=== PATIENT | female | born 2000 | race Caucasian/White ===

== ENCOUNTER 2020-01-05 20:37 | Emergency (ER) | payer OTHER, SELFPAY ==
[2020-01-05 20:38] VITALS: BP 148/101; PULSE 94; RESP 18; TEMP 36.5; O2SAT 99
--- NOTE | 2020-01-05 21:14 | ED.WOUNDLAC ---
HPI - Wound/Laceration General Chief Complaint: Wound/Laceration Stated Complaint: cut fingers open Time Seen by Provider: 01/05/20 20:45 History of Present Illness HPI narrative: Patient is a 19-year-old female who presents ER with laceration to the fingertips of the left hand digits 2 through 4. Palmar aspect. Bleeding controlled. Tetanus up-to-date. No numbness or tingling. Got her fingers caught on a hedge tremor. Range of motion intact. Related Data Allergies Allergy/AdvReac Type Severity Reaction Status Date / Time No Known Allergies Allergy Verified 01/05/20 20:42 Review of Systems Review of Systems: All systems reviewed & are unremarkable except as noted in HPI and below Musculoskeletal: Musculoskeletal: Denies arthralgias and Denies joint swelling Neurologic: Denies focal weakness and Denies numbness PMFSH Past Medical History Medical History (Updated 01/05/20 @ 22:37 by Irwin Malhotra MD) No pertinent past medical history Surgical History Surgical History (Updated 01/05/20 @ 21:15 by Irwin Malhotra MD) No pertinent past surgical history Social History Social History (Updated 01/05/20 @ 21:16 by Irwin Malhotra MD) Tobacco type: cigarettes Exam Narrative: Exam Narrative: GENERAL: Well-appearing, well-nourished, and in no acute distress. HEAD: Normocephalic, atraumatic. EXTREMITIES: Normal range of motion. No edema. Brisk capillary refill in the fingers. SKIN: Warm, dry. Very fine superficial cut to the fat pad of the distal phalanx of the fourth digit on the left hand not amenable to repair. Third digit with 1 cm laceration extending into subcutaneous tissue with fat coming out, also located on left hand. Left second digit distal phalanx with additional superficial laceration less than 1 cm with well approximated wound margin. NEURO: No focal deficits. Alert and oriented x3. PSYCH: Normal mood and affect. Course Course Emergency Course: Wound repaired. Discharge home. Vital Signs Vital signs: Vital Signs Temperature 97.7 F 01/05/20 20:38 Pulse Rate 94 01/05/20 20:38 Respiratory Rate 18 01/05/20 20:38 Blood Pressure 148/101 H 01/05/20 20:38 Pulse Oximetry 99 01/05/20 20:38 Temperature 97.7 F 01/05/20 20:38 Pulse Rate 94 01/05/20 20:38 Respiratory Rate 18 01/05/20 20:38 Blood Pressure 148/101 H 01/05/20 20:38 Pulse Oximetry 99 01/05/20 20:38 Procedures Laceration Laceration 1: Date: 01/05/20 Time: 22:20 Site: other (Right third digit) Size (cm): 1.5 Description: linear Depth: simple, single layer Local Anesthetic: lidocaine 1% and with epi Amount of anesthesia used (mL): 1 Pre-repair: irrigated ====== Skin Level ====== Skin layer closed with: nylon Size (cm): 5-0 Number of sutures: 3 Technique: simple, interrupted ====== Subcutaneous Layer ====== ====== Muscle Layer ====== ====== Tendon Layer ====== Laceration 2: Date: 01/05/20 Time: 20:25 Site: other (Right second digit) Size (cm): 1 Description: linear Depth: simple, single layer Local Anesthetic: lidocaine 1% and with epi Amount of anesthesia used (mL): 1 Pre-repair: irrigated ====== Skin Level ====== Skin layer closed with: nylon Size (cm): 5-0 Number of sutures: 2 ====== Subcutaneous Layer ====== ====== Muscle Layer ====== ====== Tendon Layer ====== Discharge Plan Discharge Clinical Impression: Laceration Patient Disposition: Home, Self-Care Condition: Stable Instructions: Care For Your Stitches (ED), Laceration (ED) Additional Instructions: Return to the ER if your wounds are draining pus, your fingers are red and hot, you have red streaking up your arm, or you have additional concerns. Remove your sutures in 14 days. Follow-up/Referrals:
[2020-01-05 22:51] VITALS: BP 140/70; PULSE 90; RESP 20; TEMP 36.7; O2SAT 97
== END 2020-01-05 22:53 | disposition home or self-care (01) ==
PROVIDERS: Emergency Provider Emergency Medicine
DX: S61.211A Laceration without foreign body of left index finger without damage to nail, initial encounter (principal); S61.212A Laceration without foreign body of right middle finger without damage to nail, initial encounter; S61.214A Laceration without foreign body of right ring finger without damage to nail, initial encounter; F17.210 Nicotine dependence, cigarettes, uncomplicated; W29.3XXA Contact with powered garden and outdoor hand tools and machinery, initial encounter
CPT/HCPCS: 12001; 99282

== ENCOUNTER 2021-07-08 16:04 | Emergency (ER) | payer OTHER, SELFPAY ==
[2021-07-08 16:37] VITALS: BP 128/84; PULSE 94; RESP 16; TEMP 36.3; O2SAT 99
[2021-07-08 17:14] LABS: Basophils Percent Auto 0.3 % (0.2-1.2); Eosinophils Absolute Auto 0.1 K/mm3 (0-0.3); Eosinophils Percent Auto 0.6 % (0-4.4); Hematocrit 44.7 % (37.0-47.0); Hemoglobin 15.2 g/dL (12.0-15.0); Immature Granulocyte Absolute 0.02 K/mm3 (0.00-0.031); Immature Granulocyte Percent A 0.2 % (0-0.5); Lymphocytes Absolute Auto 2.06 K/mm3 (0.9-3.2); Lymphocytes Percent Auto 20.1 % (18.3-44.2); Mean Corpuscular Hemoglobin 29.3 pg (26-34); Mean Corpuscular Volume 86.3 fl (80-100); Mean Platelet Volume 8.7 fl (7.4-10.4); Monocytes Absolute Auto 0.8 K/mm3 (0.1-0.6); Monocytes Percent Auto 7.7 % (2.6-8.5); Neutrophils Absolute Auto 7.3 K/mm3 (1.3-6.7); Neutrophils Percent Auto 71.1 % (45.5-73.1); Platelet Count Result 340 k/mm3 (150-375); Red Blood Count 5.18 M/mm3 (4.2-5.4); Red Cell Distribution Width 12.4 % (11.5-14.5); White Blood Count 10.2 K/mm3 (4.5-10.0)
[2021-07-08 19:12] VITALS: BP 126/72; PULSE 72; RESP 16; TEMP 36.6; O2SAT 99
--- NOTE | 2021-07-08 21:28 | PC.NURSE ---
Pt to desk stating she wants to leave and go somewhere else. Pt encouraged to stay and that everyone gets a chance to be seen. Pt still wanting to leave. Pt is A&Ox4 and walks out at this time.
== END 2021-07-09 04:34 | disposition left against medical advice (07) ==
LOC: ANHED 21:35
PROVIDERS: Emergency Provider Emergency Medicine
DX: O20.9 Hemorrhage in early pregnancy, unspecified (principal); Z3A.01 Less than 8 weeks gestation of pregnancy
CPT/HCPCS: 36415; 81025; 84702; 85025; 85461; 99199

== ENCOUNTER 2022-03-06 07:37 | Inpatient (IN) | payer OTHER, SELFPAY ==
[2022-03-06] VITALS (18 sets, daily range): BP systolic 111–141; BP diastolic 59–83; PULSE 86–114; RESP 16–20; TEMP 35.8–36.8; O2SAT 97–100; BMI 35.6
--- NOTE | 2022-03-06 07:58 | LDADM ---
This patient, Yecenia Carrera, was admitted to Labor/Delivery/Recovery 106 on 03/06/22 at 07:38. Plans for labor, pain management and were discussed with patient. Patient/family oriented to hospital policies and general routines including ID bracelet, bed and alarms, visiting hours, pain management, procedures, bathroom and other care routines, personal items, smoking policy, room service/diet and guest tray routines, infant security routines, and visiting hours. Patient/Family are encouraged to report perceived risks to care and to ask questions if they do not understand what they are told or what they should do. See OBIX for further documentation.
[2022-03-06] MEDS: LACTATED RINGERS 1,000 ML 125 ML IV CONT (08:05)
[2022-03-06 08:12] LABS: Basophils Absolute Auto 0.1 K/mm3 (0.0-0.1); Basophils Percent Auto 0.2 % (0.2-1.2); Hematocrit 39.5 % (37.0-47.0); Hemoglobin 13.7 g/dL (12.0-15.0); Immature Granulocyte Absolute 0.15 K/mm3 (0.00-0.031); Immature Granulocyte Percent A 0.6 % (0-0.5); Lymphocytes Absolute Auto 1.58 K/mm3 (0.9-3.2); Lymphocytes Percent Auto 6.4 % (18.3-44.2); Mean Corpuscular HGB Conc 34.7 g/dl (32-36); Mean Corpuscular Hemoglobin 29.8 pg (26-34); Mean Corpuscular Volume 85.9 fl (80-100); Mean Platelet Volume 9.1 fl (7.4-10.4); Monocytes Absolute Auto 1.7 K/mm3 (0.1-0.6); Monocytes Percent Auto 6.9 % (2.6-8.5); Neutrophils Absolute Auto 21.3 K/mm3 (1.3-6.7); Neutrophils Percent Auto 85.9 % (45.5-73.1); Platelet Count Result 233 k/mm3 (150-375); Red Cell Distribution Width 13.4 % (11.5-14.5); White Blood Count 24.8 K/mm3 (4.5-10.0)
[2022-03-06] MEDS: OXYTOCIN 30 UNITS/NS 500 ML 30 UNITS/500 ML BAG 999 UNITS IV CONT ×2 (08:19→08:50)
[2022-03-06 10:19] LABS: Rapid Plasma Reagin Non-Reactive (NonReactive)
--- NOTE | 2022-03-06 11:25 | PC.NURSE ---
Patient transferred to post room #278 via wheelchair. Family members present. Oriented to unit, room, information board, rooming in, admission packet and security measures. Patient verbalizes understanding.
[2022-03-06] MEDS: IBUPROFEN 600 MG TABLET PO ×2 (12:20→21:34)
--- NOTE | 2022-03-06 13:30 | PC.NURSE ---
2nd bag of pitocin that was started in labor was completed at 1330, 500ml. Pt was saline locked.
--- NOTE | 2022-03-06 16:46 | PM.IMHP ---
H&P: HPI History of Present Illness Date/Time: 03/06/22 16:46 Chief Complaint: Contractions Narrative: patient is a 21-year-old G1 at term presented to labor and delivery via ambulance with contractions. On arrival to Labor and delivery her cervix was a rim. Bag of water felt to be intact. She was admitted for imminent delivery. No records were available at the time of delivery until after delivery. Her mother and grandmother were present with her in the room and they stated she did not have any complications during this . She denies any infections. No gestational diabetes. She has received care since early on in the . She reports that she smoked less than a pack per day during . she received her care from [place]. Her chart was reviewed after delivery and appeared uncomplicated except history of tobacco abuse. Labs reviewed. Review of Systems Review of Systems: All systems reviewed & are unremarkable except as noted in HPI and below Constitutional: Constitutional: Reports no additional constitutional complaints and Denies headache(s) Eyes: Eyes: Denies spots in vision ENT: Reports system reviewed and no additional complaints, except as documented and Denies headache(s) Cardiovascular: Cardiovascular: Denies chest pain and Denies dyspnea Respiratory: Respiratory: Denies dyspnea Gastrointestinal: Gastrointestinal: Reports no additional gastrointestinal complaints Genitourinary: Genitourinary: Reports amenorrhea Musculoskeletal: Musculoskeletal: Reports no additional musculoskeletal complaints Integumentary/Breasts: Skin/Breast: Denies breast mass and Denies rash Neurologic: Denies headache(s) Psychiatric: Psychiatric: Reports no additional psychiatric complaints [facility] Past Medical History Medical History No pertinent past medical history Surgical History Surgical History No pertinent past surgical history Social History Social History Smoking packs per day: 1 Smoking cigarettes per day: 20.0 Years smoked: 8 Smoking pack-years: 8.00 Smoking status: Current some day smoker Tobacco type: cigarettes Smokeless tobacco user: other Second hand tobacco smoke exposure: Yes Substance use: never Spiritual care concerns: No Meds Home Medications and Allergies Home Medications Medication Instructions Recorded Confirmed Type llg-[id number]-irn < 1 20 pkg PO DAILY 03/06/22 03/06/22 History mg-iron oral combo pack Allergies Allergy/AdvReac Type Severity Reaction Status Date / Time No Known Allergies Allergy Verified 01/05/20 20:42 Vital Signs Vital Signs - 24 hr 03/06/22 07:49 03/06/22 07:54 03/06/22 07:59 Temperature Pulse Rate Respiratory Rate Blood Pressure Pulse Oximetry 100 100 100 Oxygen Delivery 03/06/22 08:00 03/06/22 08:05 03/06/22 08:10 Temperature Pulse Rate Respiratory Rate Blood Pressure Pulse Oximetry 100 100 100 Oxygen Delivery 03/06/22 08:15 03/06/22 08:17 03/06/22 08:31 Temperature 96.5 F L Pulse Rate 95 99 Respiratory Rate Blood Pressure 141/83 H 122/59 L Pulse Oximetry 98 Oxygen Delivery 03/06/22 08:46 03/06/22 09:01 03/06/22 09:16 Temperature Pulse Rate 91 98 87 Respiratory Rate Blood Pressure 132/76 127/77 127/82 Pulse Oximetry Oxygen Delivery 03/06/22 09:31 03/06/22 09:46 03/06/22 10:28 Temperature Pulse Rate 86 89 Respiratory Rate Blood Pressure 127/75 121/82 Pulse Oximetry Oxygen Delivery Room Air 03/06/22 11:30 Temperature 97.5 F L Pulse Rate 107 H Respiratory Rate 16 Blood Pressure 130/77 Pulse Oximetry 97 Oxygen Delivery Exam Const: General: uncomfortable HENMT: General nose exam: Rosa
--- NOTE | 2022-03-06 16:54 | P.PCNOB_ITS ---
OB - Delivery Note Procedure Delivery date: 03/06/22 Procedure: Spontaneous vaginal delivery Intrapartal Events: Decelerations Delivery monitor: External FHT Route of delivery: Laceration Description: Perineal - 2nd Degree Delivery repair: vicryl ( 3 0 Vicryl) Specimen: Yes ( placenta and cord) Quantitative Blood Loss (ml): 500 Anesthesia type: Local Disposition: Floor Complications: none Narrative: patient admitted after coming to the hospital via ambulance. She was taken to the delivery room and she was noted to be very uncomfortable with labor contrac tions. Initially difficult to assess the heart tones but were able to pick them up at 130s. Her cervix was checked she had an anterior rim of her cervix station of the baby was 0. An IV was started. She did have mild variables noted. She was starting to push uncontrollably after her IV was in. 1% lidocaine plain was injected at the perineum. She was making progress with pushing and then was noted to be complete. decelerations to 80s was noted. She then delivered a female infant. The nose and mouth was suctioned with the bulb at the perineum. This was done after the tight nuchal cord was surgically reduced. There was noted to be a right compound hand presentation. The rest of the infant was delivered the infant was vigorously crying and placed on maternal abdomen. There was noted to be an odor after delivery of the . There was also noted to be terminal meconium. Cord gases were obtained cord blood was obtained the placenta delivered spontaneously and intact. She sustained a second-degree perineal laceration which was repaired in layers with multiple layers of sutures of 3.0 Vicryl. The cervix was inspected no lacerations noted rectal exam performed to tissue intact. Sponges counted and sponge count correct. Baby Date of : 03/06/22 Time of : 08:14 Weeks of gestation at delivery: 40 gender: Female Weight (pounds): 7 Weight (ounces): 8 presentation: vertex position: Other ( right compound hand presentation) Placenta delivery description: Spontaneous Cord Vessel Description: 3 Vessels, Nuchal Cord and Tight ( surgically reduced) score one minute: 9 score five minutes: 9 AMG Delivery Billing Delivery Delivery: Delivery Charge
[2022-03-06 21:08] LABS: Amphetamine Screen Urine Negative (Negative); Barbiturate Screen Urine Negative (Negative); Benzodiazepines Screen Urine Negative (Negative); Cannabinoid Screen Urine Negative (Negative); Cocaine Screen Urine Negative (Negative); Methadone Screen Urine Negative (Negative); Opiate Screen Urine Negative (Negative); Phencyclidine Screen Urine Negative (Negative)
[2022-03-07 04:35] VITALS: BP 122/71; PULSE 73; RESP 16; TEMP 36.4; O2SAT 97
[2022-03-07 05:33] LABS: Hematocrit 31.8 % (37.0-47.0); Hemoglobin 10.6 g/dL (12.0-15.0)
[2022-03-07 07:50] VITALS: BP 107/59; PULSE 70; RESP 16; TEMP 36.7; O2SAT 96
[2022-03-07] MEDS: IBUPROFEN 600 MG TABLET PO ×2 (10:28→19:24)
--- NOTE | 2022-03-07 10:59 | PM.OBPNVD ---
OB - PN: Subj Subjective Date/time seen: 03/07/22 10:59 Patient doing well. Reports soreness that is somewhat alleviated with medication. Minimal lochia. Voiding and ambulating without difficulty. OB - PN: Obj Data Labs CBC & Chem 7: 03/07/22 05:25 Labs: Laboratory Results - last 24 hr 03/06/22 03/07/22 14:13 05:25 Hgb 10.6 L D Hct 31.8 L Urine Opiates Screen Negative Urine Methadone Screen Negative Ur Barbiturates Screen Negative Ur Phencyclidine Scrn Negative Ur Amphetamine Screen Negative U Benzodiazepines Scrn Negative Urine Cocaine Screen Negative U Cannabinoids Screen Negative OB - PN A/P Assessment and Plan (1) Normal spontaneous vaginal delivery: Code(s): O80 - Encounter for full-term uncomplicated delivery Status: Acute Assessment and Plan: PPD#1 doing well continue routine care anticipate dc home tomorrow Time Spent With Patient Time: Total time spent is greater than 50% in coordination of care (as documented) at patient's floor/unit and/or counseling patient: Exam Const: General: cooperative, healthy appearing, comfortable and no acute distress GI: Inspection: non-distended GI Palp: Yes Soft to palpation and No Tenderness to palpation present (GI) Other: fundus firm below umbilicus Extrem: Right lower extremity: no edema Left lower extremity: no edema Other: no calf tenderness
[2022-03-07] MEDS: HYDROcodone/acetaminophen (*CRX) 5-325 MG TABLET 1 TAB PO (14:24)
[2022-03-07 19:20] VITALS: BP 101/56; PULSE 89; RESP 18; TEMP 36.6
[2022-03-07] MEDS: ACETAMINOPHEN 325 MG TABLET 650 MG PO (19:25)
[2022-03-07] MEDS: DIBUCAINE 1% OINTMENT 30 GM TUBE 1 APPLIC TOPICAL (19:25)
[2022-03-08] MEDS: IBUPROFEN 600 MG TABLET PO ×2 (04:52→12:02)
[2022-03-08] MEDS: ACETAMINOPHEN 325 MG TABLET 650 MG PO ×2 (04:53→12:00)
[2022-03-08 08:00] VITALS: BP 109/70; PULSE 77; RESP 16; TEMP 36.5; O2SAT 98
--- NOTE | 2022-03-08 09:41 | PM.OBPNVD ---
OB - PN: Subj Subjective Date/time seen: 03/08/22 09:41 Patient doing well. Reports back pain after moving suddenly to tend to baby. Otherwise, minimal pain. Minimal lochia. Ambulating and voiding without difficulty. OB - PN: Obj Data Labs CBC & Chem 7: 03/07/22 05:25 OB - PN A/P Assessment and Plan (1) Normal spontaneous vaginal delivery: Code(s): O80 - Encounter for full-term uncomplicated delivery Status: Acute Assessment and Plan: PPD#2 doing well continue routine care discharge home in stable condition emergency precautions reviewed f/u in office in 4-6 weeks for visit Time Spent With Patient Time: Total time spent is greater than 50% in coordination of care (as documented) at patient's floor/unit and/or counseling patient: Exam Const: General: cooperative, healthy appearing, comfortable and no acute distress GI: Inspection: non-distended GI Palp: Yes Soft to palpation and No Tenderness to palpation present (GI) Other: fundus firm below umbilicus Extrem: Right lower extremity: no edema Left lower extremity: no edema Other: no calf tenderness
--- NOTE | 2022-03-08 09:46 | P.DS_ITS ---
DS: Admitting Diagnosis Discharge Date 03/08/22 Admitting Diagnosis IUP at 40w gestation Active labor OB - DS: Summary OB Procedures : None OB Procedures Intrapartum: Spontaneous Vag Delivery OB Procedures: : None Time Spent with Patient Time attestation: Total time spent providing and/or coordinating discharge services: Discharge Plan Discharge Attending physician on discharge: Charo Bran Discharging Clinician: Charo Bran Anticipated Discharge Date/Time: 03/08/22 09:46 Patient Disposition: Home, Self-Care Activity: as tolerated and pelvic rest Diet: regular Discharge Instructions: Call office ([phone]) to schedule a visit in 4-6 weeks. You may take Ibuprofen 600mg every 6 hours as needed for pain. Pain medication may make you constipated. It may be helpful to take an [id number] stool softener, such as Colace and/or Senokot, along with the pain medication to help lessen constipation. Call office or go to ED for pain not controlled with medication, headache, chest pain, shortness of breath, fever, chills, persistent nausea or vomiting, severe abdominal pain, heavy vaginal bleeding >2 pads/hour, foul vaginal discharge or odor, or problems with your breasts. Patient Instructions: Antibiotic Form Stand Alone Forms: General Discharge Information Follow-up/Referrals: Charo Bran MD [Physician] - Discharge Medications: Continued Chewable < 1 mg Combo Pack 20 pkg PO DAILY Date of admission: 03/06/22 07:38 Primary Care Provider: PHYSICIAN,DIESEL DRAGLINE OPERATOR Admitting Provider: Paddy Lynn Attending physician on admission: Paddy Lynn Condition: Stable
[2022-03-08] MEDS: DOCUSATE SODIUM 100 MG CAPSULE PO (12:01)
[2022-03-08] MEDS: TETANUS,DIPHTHERIA,AC PERTUSSIS ADULT (0.5 ML) BOOSTRIX IM (12:02)
[2022-03-08] MEDS: MULTIVIT/MIN/PREN/FOL AC/IRON TABLET 1 TAB PO (12:02)
--- NOTE | 2022-03-08 12:07 | PC.NURSE ---
Patient was given the opportunity to view the discharge video Mother & Baby Care, The First Two Weeks and to ask questions. Patient declined viewing the video and has been given the mother/baby guide for home reference.
== END 2022-03-08 13:35 | disposition home or self-care (01) | DRG 560 ==
LOC: ANHLDR 07:41 → ANHOB2 03-08 09:47 → ANHLDR 03-11 08:45 → ANHOB2 03-11 08:45
PROVIDERS: Admitting Provider Obstetrics & Gynecology; Visit Provider Student in an Organized Health Care Education/Training Program
DX: O76 Abnormality in fetal heart rate and rhythm complicating labor and delivery (principal); O99.334 Smoking (tobacco) complicating childbirth; F17.210 Nicotine dependence, cigarettes, uncomplicated; O70.1 Second degree perineal laceration during delivery; O69.1XX0 Labor and delivery complicated by cord around neck, with compression, not applicable or unspecified; O32.6XX0 Maternal care for compound presentation, not applicable or unspecified; O77.0 Labor and delivery complicated by meconium in amniotic fluid; Z3A.40 40 weeks gestation of pregnancy; Z37.0 Single live birth
CPT/HCPCS: 36415; 80307; 85014; 85018; 85025; 86592; 86850; 86900; 86901; 88307; 90715; A9270; J2590; J7120

== ENCOUNTER 2022-03-09 15:15 | Emergency (ER) | payer OTHER, SELFPAY ==
[2022-03-09 15:20] VITALS: BP 148/89; PULSE 103; RESP 18; TEMP 36; O2SAT 97
[2022-03-09 16:04] LABS: Basophils Absolute Auto 0.1 K/mm3 (0.0-0.1); Basophils Percent Auto 0.3 % (0.2-1.2); Eosinophils Absolute Auto 0.2 K/mm3 (0-0.3); Eosinophils Percent Auto 0.9 % (0-4.4); Hematocrit 33.7 % (37.0-47.0); Immature Granulocyte Absolute 0.25 K/mm3 (0.00-0.031); Immature Granulocyte Percent A 1.4 % (0-0.5); Lymphocytes Absolute Auto 1.59 K/mm3 (0.9-3.2); Lymphocytes Percent Auto 8.7 % (18.3-44.2); Mean Corpuscular HGB Conc 32.6 g/dl (32-36); Mean Corpuscular Hemoglobin 29.6 pg (26-34); Mean Corpuscular Volume 90.6 fl (80-100); Monocytes Absolute Auto 1.4 K/mm3 (0.1-0.6); Monocytes Percent Auto 7.4 % (2.6-8.5); Neutrophils Absolute Auto 14.8 K/mm3 (1.3-6.7); Neutrophils Percent Auto 81.3 % (45.5-73.1); Platelet Count Result 280 k/mm3 (150-375); Red Blood Count 3.72 M/mm3 (4.2-5.4); White Blood Count 18.2 K/mm3 (4.5-10.0)
[2022-03-09 16:10] VITALS: BP 144/100; PULSE 100; RESP 16; TEMP 36.4; O2SAT 98
--- NOTE | 2022-03-09 16:28 | ED.FEMALEGU ---
HPI - Female Genitourinary General Chief complaint: Vaginal Bleeding Stated complaint: vaginal bleeding Time Seen by Provider: 03/09/22 16:28 Source: patient and RN notes reviewed Mode of arrival: ambulatory Limitations: no limitations History of Present Illness HPI Narrative: 21 years old white female s/p vaginal delivery 3 days ago, vaginal lacerations, stitches, passed a blood clot, the same size of a golf ball. Patient got panicky and came to the emergency room. She denies any lightheadedness, dizziness, chest pain, shortness of breath, weakness. Related Data Home Medications Medication Instructions Recorded Confirmed god-peexwsr-kcwpn-irn < 1 20 pkg PO DAILY 03/06/22 03/06/22 mg-iron oral combo pack Allergies Allergy/AdvReac Type Severity Reaction Status Date / Time No Known Allergies Allergy Verified 01/05/20 20:42 Review of Systems Review of Systems: All systems reviewed & are unremarkable except as noted in HPI and below PMFSH Past Medical History Medical History No pertinent past medical history Surgical History Surgical History No pertinent past surgical history Social History Social History Smoking packs per day: 1 Smoking cigarettes per day: 20.0 Years smoked: 8 Smoking pack-years: 8.00 Smoking status: Current some day smoker Tobacco type: cigarettes Smokeless tobacco user: other Second hand tobacco smoke exposure: Yes Substance use: never Spiritual care concerns: No Exam Narrative: General appearance: Well-developed, well-nourished Skin: Normal color Chest and respiratory: Airway patent, no respiratory distress, no accessory muscle use Heart: Regular rate/rhythm Abdomen: Soft, nontender, no organomegaly, quiet bowel sounds Vascular: Normal peripheral pulses, normal capillary refill. Neurologic: Alert and oriented ?3 : Speculum Exam - Vagina: vaginal bleeding (Slight vaginal bleeding, stitches in place, no blood clots in the vaginal p) Course Course Emergency Course: Stable Consultations Consultation #1: Dr. Bran Patient can be discharged home, Date: 03/09/22 Time: 17:11 Vital Signs Vital signs: Vital Signs Temperature 36.0 C L 03/09/22 15:20 Pulse Rate 103 H 03/09/22 15:20 Respiratory Rate 18 03/09/22 15:20 Blood Pressure 148/89 H 03/09/22 15:20 Pulse Oximetry 97 03/09/22 15:20 Oxygen Delivery Room Air 03/09/22 15:20 Temperature 36.4 C 03/09/22 16:10 Pulse Rate 100 03/09/22 16:10 Respiratory Rate 16 03/09/22 16:10 Blood Pressure 144/100 H 03/09/22 16:10 Pulse Oximetry 98 03/09/22 16:10 Oxygen Delivery Room Air 03/09/22 15:20 MDM - Female Genitourinary Lab Data Result diagrams: 03/09/22 15:46 Labs: Lab Results 03/09/22 03/09/22 Range/Units 15:46 15:46 WBC 18.2 H (4.5-10.0) K/mm3 RBC 3.72 L (4.2-5.4) M/mm3 Hgb 11.0 L (12.0-15.0) g/dL Hct 33.7 L (37.0-47.0) % MCV 90.6 D (80-100) fl MCH 29.6 (26-34) pg MCHC 32.6 (32-36) g/dl RDW 14.0 (11.5-14.5) % Plt Count 280 (150-375) k/mm3 MPV 9.0 (7.4-10.4) fl Immature Gran % (Auto) 1.4 H (0-0.5) % Neut % (Auto) 81.3 H (45.5-73.1) % Lymph % (Auto) 8.7 L (18.3-44.2) % [place] % (Auto) 7.4 (2.6-8.5) % Eos % (Auto) 0.9 (0-4.4) % Baso % (Auto) 0.3 (0.2-1.2) % Lymph # (Auto) 1.59 (0.9-3.2) K/mm3 [place] # (Auto) 1.4 H (0.1-0.6) K/mm3 Eos # (Auto) 0.2 (0-0.3) K/mm3 Baso # (Auto) 0.1 (0.0-0.1) K/mm3 Abs Immat Gran (
[2022-03-09 16:29] LABS: Beta HCG Quantitative 248.35 mIU/ML
== END 2022-03-09 17:25 | disposition home or self-care (01) ==
PROVIDERS: Emergency Medicine; Emergency Provider Emergency Medicine
DX: O72.2 Delayed and secondary postpartum hemorrhage (principal); O99.335 Smoking (tobacco) complicating the puerperium; F17.210 Nicotine dependence, cigarettes, uncomplicated
CPT/HCPCS: 36415; 84702; 85025; 85461; 99284

== ENCOUNTER 2023-02-09 11:23 | Emergency (ER) | payer OTHER, SELFPAY ==
--- NOTE | ~2023-02-09 | XR_ITS ---
XR abdomen/kub 1V 02/09/2023 12:12 INDICATION: Bloating. Constipation TECHNIQUE: KUB COMPARISON: None FINDINGS: Bowel gas pattern is normal. There is no evidence of free air, mass, organomegaly, ascites or obstruction. No abnormal calculi are seen. The bones appear intact. IMPRESSION: 1: No acute abdominal abnormality identified. Reviewed, dictated and finalized at location []
[2023-02-09 11:26] VITALS: BP 144/92; PULSE 102; RESP 16; TEMP 36.4; O2SAT 100
[2023-02-09 12:02] LABS: Basophils Percent Auto 0.3 % (0.2-1.2); Eosinophils Absolute Auto 0.2 K/mm3 (0-0.3); Eosinophils Percent Auto 1.6 % (0-4.4); Hematocrit 42.8 % (37.0-47.0); Hemoglobin 14.1 g/dL (12.0-15.0); Immature Granulocyte Absolute 0.05 K/mm3 (0.00-0.031); Immature Granulocyte Percent A 0.4 % (0-0.5); Lymphocytes Absolute Auto 1.78 K/mm3 (0.9-3.2); Lymphocytes Percent Auto 15.4 % (18.3-44.2); Mean Corpuscular HGB Conc 32.9 g/dl (32-36); Mean Corpuscular Volume 84.9 fl (80-100); Mean Platelet Volume 8.8 fl (7.4-10.4); Monocytes Absolute Auto 0.9 K/mm3 (0.1-0.6); Monocytes Percent Auto 7.3 % (2.6-8.5); Neutrophils Absolute Auto 8.7 K/mm3 (1.3-6.7); Platelet Count Result 322 k/mm3 (150-375); Red Blood Count 5.04 M/mm3 (4.2-5.4); Red Cell Distribution Width 12.6 % (11.5-14.5); White Blood Count 11.6 K/mm3 (4.5-10.0)
[2023-02-09 12:10] LABS: Alanine Aminotransferase 31 U/L (6-35); Albumin Level 4.5 g/dL (3.5-5.1); Alkaline Phosphatase 76 U/L (38-126); Anion Gap 9 mmol/L (8-16); Aspartate Amino Transferase 38 U/L (14-36); Bilirubin,Total 0.5 mg/dL (0.2-1.3); Blood Urea Nitrogen 6 mg/dL (7-17); Calcium 8.8 mg/dL (8.4-10.2); Carbon Dioxide 27 mmol/L (22-30); Chloride 104 mmol/L (98-107); Estimated CRCL calculation 145 ml/min; Estimated Glomerular Filt Rate > 60; Glucose 112 mg/dL (65-110); Lipase 51 U/L (23-300); Potassium 3.1 mmol/L (3.4-5.0); Sodium 140 mmol/L (137-145)
--- NOTE | 2023-02-09 13:46 | ED.ABDPAIN ---
HPI - Abdominal Pain General Chief Complaint: Abdominal Pain Stated Complaint: constipation/coughing up blood Time Seen by Provider: 02/09/23 11:31 History of Present Illness HPI narrative: Patient is a 22-year-old female who presents ER with 2 complaints. First complaint is sinus congestion with sore throat. She has had some sputum that she is coughed up that was streaked with blood. This occurred 1 time today. Patient also reports abdominal bloating cramping occurring over the last couple of days. She will get bloated and then will have to pass gas in order to feel better. She reports no bowel movement for several days. She is not taking laxatives. No lateralizing abdominal pain. Denies any additional complaints. No alleviating factors. Related Data Home Medications Medication Instructions Recorded Confirmed glb-nkwtgev-kmjqk-irn < 1 20 pkg PO DAILY 03/06/22 03/06/22 mg-iron oral combo pack Allergies Allergy/AdvReac Type Severity Reaction Status Date / Time No Known Allergies Allergy Verified 02/09/23 11:28 Review of Systems Review of Systems: All systems reviewed & are unremarkable except as noted in HPI and below Constitutional: Constitutional: Denies chills and Denies fever(s) ENT: Reports nasal congestion and Denies sore throat Cardiovascular: Cardiovascular: Denies chest pain, Denies radiating jaw, neck or arm pain and Denies slow heart rate Respiratory: Respiratory: Reports cough and Denies dyspnea Gastrointestinal: Gastrointestinal: Reports abdominal pain, Reports bloating, Reports constipation, Denies nausea and Denies vomiting PMFSH Past Medical History Medical History No pertinent past medical history Surgical History Surgical History No pertinent past surgical history Social History Social History Smoking packs per day: 1 Smoking cigarettes per day: 20.0 Years smoked: 8 Smoking pack-years: 8.00 Smoking status: Current some day smoker Tobacco type: cigarettes Smokeless tobacco user: other Second hand tobacco smoke exposure: Yes Substance use: never Spiritual care concerns: No Exam Narrative: GENERAL: Well-appearing, well-nourished, and in no acute distress. HEAD: Normocephalic, atraumatic. EYES: PERRL and EOMI. ENT: Mucous membranes moist. Normal-appearing posterior oropharynx. CHEST: Clear to auscultation. No respiratory distress. HEART: Regular rate and rhythm. Normal peripheral pulses. ABDOMEN: Soft, nontender, nondistended, normal active bowel sounds. EXTREMITIES: Normal range of motion. No edema. SKIN: Warm, dry, no rash. NEURO: Alert and oriented x3. PSYCH: Normal mood and affect. Course Course Emergency Course: Patient resting comfortably. Informed of results. Given reassurance. Discharge home. Vital Signs Vital signs: Vital Signs Temperature 97.6 F 02/09/23 11:26 Pulse Rate 102 H 02/09/23 11:26 Respiratory Rate 16 02/09/23 11:26 Blood Pressure 144/92 H 02/09/23 11:26 Pulse Oximetry 100 02/09/23 11:26 Temperature 97.6 F 02/09/23 11:26 Pulse Rate 102 H 02/09/23 11:26 Respiratory Rate 16 02/09/23 11:26 Blood Pressure 144/92 H 02/09/23 11:26 Pulse Oximetry 100 02/09/23 11:26 Oxygen Delivery Room Air 02/09/23 11:50 MDM - Abdominal Pain Lab Data 02/09/23 11:56 02/09/23 11:56 Labs: Lab Results 02/09/23 Range/Units 11:56 WBC 11.6 H (4.5-10.0) K/mm3 RBC 5.04 (4.2-5.4) M/mm3 Hgb 14.1 D (12.0-15.0) g/dL Hct 42.8 (37.0-47.0) % MCV 84.9 (80-100) fl MCH 28.0 (26-34) pg MCHC 32.9 (32-36) g/dl RDW 12.6 (11.5-14.5) % Plt Count 322 (150-375) k/mm3 MPV 8.8 (7.4-10.4) fl Immature Gran % (Auto) 0.4 (0-0.5) % Neut % (Auto) 75.0 H (45.5-73.1) % Lymph % (Auto)
[2023-02-09 14:09] VITALS: BP 131/84; PULSE 88; RESP 18; O2SAT 98
== END 2023-02-09 14:12 | disposition home or self-care (01) ==
PROVIDERS: Emergency Provider Emergency Medicine
DX: R10.9 Unspecified abdominal pain (principal); F17.210 Nicotine dependence, cigarettes, uncomplicated
CPT/HCPCS: 36415; 74018; 80053; 83690; 85025; 99283

== ENCOUNTER 2023-08-04 19:45 | Emergency (ER) | payer OTHER, SELFPAY ==
--- NOTE | ~2023-08-04 | CT_ITS ---
EXAMINATION: CT abdomen pelvis wo con DATE: 08/04/2023 21:21 INDICATION: lower abd pelvic pain/pressure, UTI, r/o stone TECHNIQUE: Computed tomography (CT) of the abdomen and pelvis was performed without intravenous contr ast. Automated exposure control and iterative reconstruction technique were employed. The dose-length product was 1228.59 mGy-cm. COMPARISON: None. FINDINGS: Lower thorax: Unremarkable Liver: Normal. Biliary/Gallbladder: Gallbladder is normal. No bile duct dilation. Pancreas: No mass or duct dilation. Spleen: Normal. Adrenals:No mass. Kidneys: No suspicious mass, obstructing stone, or hydronephrosis. GI tract: No small or large bowel dilation. Normal appendix. Mesentery/Peritoneum: No ascites, mass, or free air. Retroperitoneum: No mass. Pelvis: Bladder wall thickening and inflammatory change in a partially distended urinary bladder. Nor mal uterus and ovaries. Soft Tissues: Soft tissues and body wall unremarkable. Bones: No acute osseous finding. IMPRESSION: Cystitis. Otherwise, no acute abdominopelvic process detected. Specifically, no CT evidence of nephrolithiasis or obstructive uropathy. Reviewed, dictated and finalized at location K. PRELUDE ANALYST IMPRESSION: Cystitis. Otherwise, no acute abdominopelvic process detected. Specifically, no CT eviden ce of nephrolithiasis or obstructive uropathy.
[2023-08-04 19:47] VITALS: BP 146/84; PULSE 95; RESP 18; TEMP 35.9; O2SAT 100
--- NOTE | 2023-08-04 20:00 | ED.GENADULT ---
HPI - General Adult General Chief complaint: Unspecified Stated complaint: difficulty urinating/vaginal discharge Time Seen by Provider: 08/04/23 19:55 Source: patient Mode of arrival: ambulatory Limitations: no limitations History of Present Illness HPI narrative: Patient is a 22 y/o female who presents to the ED with c/o urinary pressure. Patient reports having urinary pressure, urinary frequency with sensation of difficulty emptying bladder, small urinary voids, intermittent hematuria/clots in urine for the past 1 week. She denies significant abdominal pain, back pain, fevers, nausea, vomiting. Patient reports history of frequent UTIs and states she was supposed to be seen by a urologist. Related Data Home Medications Medication Instructions Recorded Confirmed [id number] < 1 20 pkg PO DAILY 03/06/22 03/06/22 mg-iron oral combo pack Allergies Allergy/AdvReac Type Severity Reaction Status Date / Time No Known Allergies Allergy Verified 02/09/23 11:28 Review of Systems Review of Systems: CONSTITUTIONAL: Denies fever, chills, or sweats. GASTROINTESTINAL: Denies abdominal pain, nausea, vomiting, or diarrhea. GENITOURINARY: See HPI. MUSCULOSKELETAL: Denies back pain, extremity pain, myalgia. All systems reviewed & are unremarkable except as noted in HPI and below PMFSH Past Medical History Medical History No pertinent past medical history Surgical History Surgical History No pertinent past surgical history Social History Social History Smoking packs per day: 1 Smoking cigarettes per day: 20.0 Years smoked: 8 Smoking pack-years: 8.00 Smoking status: Current some day smoker Tobacco type: cigarettes Smokeless tobacco user: other Second hand tobacco smoke exposure: Yes Substance use: never Spiritual care concerns: No Exam Narrative: GENERAL: Well appearing, obese with BMI of 36.5, non-toxic, in no acute distress. HEAD: Normocephalic, atraumatic. RESPIRATORY: Airway patent, respirations nonlabored. Clear to auscultation bilaterally, no rales, rhonchi, wheezing. CARDIOVASCULAR: Regular rate and rhythm without murmurs, rubs, or gallops. ABDOMINAL: Soft, no significant tenderness throughout abdomen, nondistended. Normoactive BS. No CVA tenderness to percussion. MUSCULOSKELETAL: Moves all extremities. No gross deformities. SKIN: Warm, dry, normal color. No rashes. NEURO: A&O X3. Speech clear. Cranial nerves II-XII grossly intact. Steady gait. No ataxic movements. PSYCHIATRIC: Appropriate mood and affect. Normal interaction. Course Vital Signs Vital signs: Vital Signs Temperature 96.6 F L 08/04/23 19:47 Pulse Rate 95 08/04/23 19:47 Respiratory Rate 18 08/04/23 19:47 Blood Pressure 146/84 H 08/04/23 19:47 Pulse Oximetry 100 08/04/23 19:47 Oxygen Delivery Room Air 08/04/23 19:47 Temperature 96.6 F L 08/04/23 19:47 Pulse Rate 95 08/04/23 19:47 Respiratory Rate 18 08/04/23 19:47 Blood Pressure 146/84 H 08/04/23 19:47 Pulse Oximetry 100 08/04/23 19:47 Oxygen Delivery Room Air 08/04/23 19:[address] [facility] Narrative Medical decision making narrative: Patient present ED with 1 week history of urinary complaints, history of recurrent UTIs. Vitals stable upon arrival. Patient afebrile. UA does appear grossly infected. Culture sent. Patient given dose of ceftriaxone in the ED. Basic laboratory studies showing mild leukocytosis of 11.6. CMP unremarkable. Stable kidney function, stable electrolytes. CT abdomen pelvis obtained to rule out stone or other obstructive process, showing cystitis changes, and no ureterolithiasis. Patient updated on lab and imaging results. She is concerned that there is abnormal tissue coming from
[2023-08-04 20:27] LABS: Appearance Urine Turbid (Clear); Bacteria Urine 3+ /hpf; Bilirubin Urine Negative (Negative); Blood Urine 2+ (Negative); Color Urine Yellow (Yellow); Glucose Urine UA Negative (Negative); Ketones Urine 1+ mg/dL (Negative); Leukocyte Esterase Ur 2+ LEU/UL (Negative); Need Manual Microscopic Reviewed; Nitrate Urine Positive (Negative); Protein Urine 2+ mg/dL (Negative); RBC Urine 21-50 /hpf (0-2); Specific Grav Ur 1.023 (1.001-1.035); Squamous Epithelial Cell Urine None seen /hpf (Few); WBC Urine >100 /hpf
[2023-08-04 20:28] LABS: Add Urine Microscopic? YES
[2023-08-04 20:59] LABS: Pregnancy On Board Control Positive; Urine Pregnancy Test Negative
[2023-08-04] MEDS: SODIUM CHLORIDE 0.9% IV 1,000 ML 999 ML IV CONT (21:11)
--- NOTE | 2023-08-04 21:15 | PC.NURSE ---
pt taken to ct at this time
[2023-08-04 21:19] LABS: Basophils Percent Auto 0.3 % (0.2-1.2); Eosinophils Absolute Auto 0.2 K/mm3 (0-0.3); Eosinophils Percent Auto 1.6 % (0-4.4); Hematocrit 46.2 % (37.0-47.0); Hemoglobin 15.2 g/dL (12.0-15.0); Immature Granulocyte Absolute 0.04 K/mm3 (0.00-0.031); Immature Granulocyte Percent A 0.3 % (0-0.5); Lymphocytes Absolute Auto 2.38 K/mm3 (0.9-3.2); Lymphocytes Percent Auto 20.6 % (18.3-44.2); Mean Corpuscular HGB Conc 32.9 g/dl (32-36); Mean Corpuscular Hemoglobin 28.3 pg (26-34); Mean Corpuscular Volume 85.9 fl (80-100); Mean Platelet Volume 8.7 fl (7.4-10.4); Monocytes Absolute Auto 0.7 K/mm3 (0.1-0.6); Monocytes Percent Auto 6.2 % (2.6-8.5); Neutrophils Absolute Auto 8.2 K/mm3 (1.3-6.7); Platelet Count Result 322 k/mm3 (150-375); Red Blood Count 5.38 M/mm3 (4.2-5.4); Red Cell Distribution Width 12.9 % (11.5-14.5); White Blood Count 11.6 K/mm3 (4.5-10.0)
[2023-08-04 21:28] LABS: Alanine Aminotransferase 15 U/L (6-35); Albumin Level 4.5 g/dL (3.5-5.1); Alkaline Phosphatase 78 U/L (38-126); Anion Gap 12 mmol/L (8-16); Aspartate Amino Transferase 20 U/L (14-36); Bilirubin,Total 0.3 mg/dL (0.2-1.3); Blood Urea Nitrogen 9 mg/dL (7-17); Calcium 9.2 mg/dL (8.4-10.2); Carbon Dioxide 21 mmol/L (22-30); Chloride 106 mmol/L (98-107); Estimated CRCL calculation 145 ml/min; Estimated Glomerular Filt Rate > 60; Glucose 86 mg/dL (65-110); Potassium 3.9 mmol/L (3.4-5.0); Sodium 139 mmol/L (137-145)
--- NOTE | 2023-08-04 21:28 | PC.NURSE ---
pt returned to H3
[2023-08-04 22:58] VITALS: BP 124/76; PULSE 84; RESP 20; O2SAT 100
== END 2023-08-04 22:59 | disposition home or self-care (01) ==
PROVIDERS: Emergency Medicine; Emergency Provider Physician Assistant
DX: N30.01 Acute cystitis with hematuria (principal)
CPT/HCPCS: 36415; 74176; 80053; 81001; 81025; 85025; 87077; 87086; 87186; 96365; 99284; J0696; J7030

== ENCOUNTER 2024-10-07 20:14 | Emergency (ER) | payer SELFPAY ==
--- OUTSIDE RECORDS SUMMARY | 2024-10-07 20:17 | XMS_ITS | Clinical Summary ---
Author Organization [facility] Address [address] [place] [address] Care Team Providers Care Laborer Laboratory Name Role Phone Christal Flores NP Primary Care Provider [phone] Allergies No known active allergies Medications vit 96-ihsn-orizr-d caraballo 27mg iron- 800 mcg-250 mg capsule Take 1 capsule by mouth daily Active oxyCODONE-aceta minophen (PERCOCET) 5-325 mg per tabletIndicatio ns:Pain Take 1 tablet by mouth every 4 (four) hours as needed for pain Active acetaminophen (TYLENOL) 325 mg tablet Take 650 mg by mouth every 6 (six) hours as needed for pain Active Active Problems No known active problems Medical History Medical History Date Comments Vaginal delivery 03/07/2022 Patient is a currently breast-feeding mother Social History Tobacco Use Types Packs/Day Years Used Date Smoking Tobacco: Every Day Cigarettes 0.1 15 AUDIT-C Answer Date Recorded Q1: How often do you have a drink containing alc ohol? Never 03/19/2022 Average Number of Drinks Not on file 022 Q3: How often do you have si x or more drinks on one occasion? Never 03/19/2022 Hunger Vital Sign Answer Date Recorded Within the past 12 months, y ou worried that your food would run out before you got the money to buy more. Patient declined Within the past 12 months, t he food you bought just didn't last and you didn't have money to get more. Patient declined Comments Unknown Sex and Gender Information Value Date Recorded Sex Assigned at Not on file Legal Sex Female 10:27 AM CDT Gender Identity Not on file Sexual Orientation Not on file Obstetrics History Last Filed Vital Signs Vital Sign Reading Time Taken Comments Blood Pressure 137/82 12/08/2022 2:24 PM CDT Pulse 97 12/08/2022 2:24 PM CDT Temperature 37 C (98.6 F) 12/08/2022 2:24 PM CDT Respiratory Rate 17 03/20/2022 3:10 PM CDT Oxygen Saturation 99% 12/08/2022 2:24 PM CDT Inhaled Oxygen Concentration - - Weight 107.7 kg (237 lb 8 oz) 12/08/2022 2:24 PM CDT Height 167.6 cm (5' 6 ) 12/08/2022 2:24 PM CDT Body Mass Index 38.33 12/08/2022 2:24 PM CDT Plan of Treatment Health Maintenance Due Date Last Done Comments Cervical Cancer Screening 1999 Depression Screening 1999 Hepatitis C Screening 1999 Pneumococcal vaccine <65 (1 of 2 - PCV) 2005 HPV Vaccines (1 - 3-dose series) 2014 Regular Well Visit/Exam 18-64 2017 Influenza Vaccine (#1) 2024 07/01/2005 DTaP/Tdap/Td Vaccine (8 - Td or Tdap) 03/08/2032 03/08/2022, 02/03/2013, 07/30/2005, Additional history exists Varicella Vaccines Completed 04/10/2008, 10/29/2001 Insurance [facility] Care Teams Laborer Laboratory Relationship Specialty Start Date End Date Christal Flores NP PCP - General 11/15/20
--- OUTSIDE RECORDS SUMMARY | 2024-10-07 20:17 | XMS_ITS | Referral Summary ---
Author Organization [facility] Address [address] [place] [address] Care Team Providers Care Deck Molder Name Role Phone Christal Flores [employer] Primary Care Provider [phone] Allergies No known active allergies Medications vit 49-slne-sdkhb-d caraballo 27mg iron- 800 mcg-250 mg capsule Take 1 capsule by mouth daily Active oxyCODONE-aceta minophen (PERCOCET) 5-325 mg per tabletIndicatio ns:Pain Take 1 tablet by mouth every 4 (four) hours as needed for pain Active acetaminophen (TYLENOL) 325 mg tablet Take 650 mg by mouth every 6 (six) hours as needed for pain Active Active Problems No known active problems Social History Tobacco Use Types Packs/Day Years [...] on file Sexual Orientation Not on file Last Filed Vital Signs Vital Sign Reading [...] 12/08/2022 2:24 PM CDT Plan of Treatment Not on file Insurance [facility] Care Teams Deck Molder Relationship Specialty Start Date End Date Christal Flores NP PCP - General 11/15/20
[2024-10-07 20:31] VITALS: BP 130/72; PULSE 87; RESP 18; TEMP 36.8; O2SAT 99
--- NOTE | 2024-10-07 20:55 | PC.NURSE ---
Pt ambulatory to triage desk and states she is wanting to let us RNs know she is leaving. Pt states I got to find out whether or not I am losing the baby and I am not waiting . Pt left without being seen by provider at 20:55.
--- OUTSIDE RECORDS SUMMARY | 2024-10-07 21:01 | XMS_ITS | Clinical Summary ---
Author Organization [facility] Address [address] [place] [address] Care Team Providers Care Set Up Mechanic [employer] Name Role Phone Christal Flores NP Primary Care Provider [phone] Allergies No known active allergies Medications vit 05-ywyk-ksvic-d caraballo 27mg iron- 800 mcg-250 mg capsule [...] exists Varicella Vaccines Completed 04/10/2008, 10/29/2001 Insurance [facility] Care Teams Set Up Mechanic [employer] Relationship Specialty Start Date End Date Christal Flores NP PCP - General 11/15/20
--- OUTSIDE RECORDS SUMMARY | 2024-10-07 21:01 | XMS_ITS | Data Portability ---
Author Organization [facility] Address [address] [place] [address] [place] [address] Assessment No assessment recorded. Plan of Treatment Reminders Order Date Submit Date Provider Last Modified By Organization Details Last Modified Time Details Appointments None recorded. Lab test, urine 2019 020 [email or web address] [place], [address], [place], [address], 0 15:11:20 HbA1c (hemoglobi n A1c), blood 2019 020 LATHAM [facility] ([facility]), [address], [place], [address], 0 14:18:06 prolactin, serum 2019 020 LATHAM [facility] ([facility]), [address] Alfred[address], [place], [address], 0 14:18:05 TSH, serum or plasma 2019 020 LATHAM [facility] ([facility]), [address], [place], [address], 0 14:18:06 CBC w/ auto diff 2019 020 LATHAM [facility] ([facility]), [address], [place], [address], 0 14:18:04 CMP, serum or plasma 2019 020 AYSHA [facility] ([facility]), [address] [place] [address] Jose Alfredo Diaz, [place], [address], 0 14:18:05 Referral None recorded. Procedures None recorded. Surgeries None recorded. Imaging None recorded. Medication Orders Lysteda 650 mg tablet 2019 020 ATHENAFAX Not available 0 11:07:32 Patient TargetsNo targets recorded. Patient Instructions Encounter Date Encounter Id Patient Instructions Last Modified By Organization Details Last Modified Time 08/09/2020 [id number] [email or web address] Not available 10:57:18 Reason for Referral None Reported. Results Created Date Observation Date Name Description Value Unit Range Abnormal Flag Note LastModifiedBy Organization Detail LastModifiedTime 08/09/20 20 08/10/2020 CBC w/ auto diff WBC 8.1 K/uL 3.8-11 .5 Not Available [facility] ([facility]) [address] [place] [address] Dr Lyons, [place], [address], 08/10/2020 14:18:04 08/09/20 20 08/10/2020 CBC w/ auto diff red blood cell count (RBC) 5.18 M/mm3 3.60-5 .30 Not Available [facility] ([facility]) [address] [place] [address] Dr Lyons, [place], [address], 08/10/2020 14:18:04 08/09/20 20 08/10/2020 CBC w/ auto diff hemoglobin (HGB) 14.9 gm/dL 11.5-1 5.5 Not Available [facility] ([facility]) [address] [place] [address] Dr Lyons, [place], [address], 08/10/2020 14:18:04 08/09/20 20 08/10/2020 CBC w/ auto diff hematocrit (HCT) 43.9 % 35.2-4 6.4 Not Available [facility] ([facility]) [address] [place] [address] Dr Lyons, [place], [address], 08/10/2020 14:18:04 08/09/20 20 08/10/2020 CBC w/ auto diff MCV 84.7 fL 79.0-9 9.0 Not Available [facility] ([facility]) [address] [place] [address] Dr Lyons, [place], [address], 08/10/2020 14:18:04 08/09/20 20 08/10/2020 CBC w/ auto diff MCH 28.8 pg 26.9-3 5.0 Not Available [facility] ([facility]) [address] [place] [address] Dr Lyons, [place], [address], 08/10/2020 14:18:04 08/09/20 20 08/10/2020 CBC w/ auto diff MCHC 33.9 g/dL 30.4-3 4.8 Not Available [facility] ([facility]) [address] [place] [address] Dr Lyons, [place], [address], 08/10/2020 14:18:04 08/09/20 20 08/10/2020 CBC w/ auto diff RDW 38.2 fL 38.6-5 3.8 low Not Available [facility] ([facility]) [address] [place] [address] Dr Lyons, [place], [address], 08/10/2020 14:18:04 08/09/20 20 08/10/2020 CBC w/ auto diff platelet count 363 K/cum m 137-39 7 Not Available [facility] ([facility]) [address] [place] [address] Dr Lyons, [place], [address], 08/10/2020 14:18:04 08/09/20 20 08/10/2020 CBC w/ auto diff neutrophils automated 65.4 % 41.0-7 7.0 Not Available [facility] ([facility]) [address] [place] [address] Dr Lyons, [place], [address], 08/10/2020 14:18:04 08/09/20 20 08/10/2020 CBC w/ auto diff lymphocytes automated 23.6 % 14.0-4 8.0 Not Available [email or web address] ([facility]) [address] [place] [address] Dr Lyons, [place], [address], 08/10/2020 14:18:04 08/09/20 20 08/10/2020 CBC w/ auto diff monocytes automated 8.1 % 4.0-13 .0 Not Available [email or web address] ([facility]) [address] [place] [address] Dr Lyosn, [place], [address], 08/10/2020 14:18:04 08/09/20 20 08/10/2020 CBC w/ auto diff eosinophils automated 2.1 % 0.0-8. 0 Not Available [email or web address] ([facility]) [address] [place] [address] Dr Lyons, [place], [address], 08/10/2020 14:18:04 08/09/20 20 08/10/2020 CBC w/ auto diff basophils automated 0.6 % 0.0-1. 5 Not Available [email or web address] ([facility]) [address] [place] [address] Dr Lyons, [place], [address], 08/10/2020 14:18:04 08/09/20 20 08/10/2020 CBC w/ auto diff immature granulocyte automated 0.2 % 0.0-1. 0 Not Available [email or web address] ([facility]) [address] [place] [address] Dr Lyons, [place], [address], 08/10/2020 14:18:04 08/09/20 20 08/10/2020 CMP, serum or plasm a sodium 141 mEq/L 135-14 5 Not Available [facility] ([facility]) [address] [place] [address] Dr Lyons, [place], [address], 08/10/2020 14:18:04 08/09/20 20 08/10/2020 CMP, serum or plasm a potassium 3.9 mEq/L 3.5-5. 3 Not Available [facility] ([facility]) [address] [place] [address] Dr Lyons, [place], [address], 08/10/2020 14:18:04 08/09/20 20 08/10/2020 CMP, serum or plasm a chloride 105 mEq/L 97-108 Not Available [email or web address] ([facility]) [address] [place] [address] Dr Lyons, [place], [address], 08/10/2020 14:18:04 08/09/20 20 08/10/2020 CMP, serum or plasm a CO2 26 mEq/L 22-32 Not Available [facility] ([facility]) [address] [place] [address] Dr Lyons, [place], [address], 08/10/2020 14:18:04 08/09/20 20 08/10/2020 CMP, serum or plasm a glucose 85 mg/dL 65-99 Not Available [facility] ([facility]) [address] [place] [address] Dr Lyons, [place], [address], 08/10/2020 14:18:04 08/09/20 20 08/10/2020 CMP, serum or plasm a BUN 8 mg/dL 6-20 Not Available [facility] ([facility]) [address] [place] [address] Dr Lyons, [place], [address], 08/10/2020 14:18:04 08/09/20 20 08/10/2020 CMP, serum or plasm a creatinine 0.68 mg/dL 0.50-1 .00 Not Available [facility] ([facility]) [address] [place] [address] Dr Lyons, [place], [address], 08/10/2020 14:18:04 08/09/20 20 08/10/2020 CMP, serum or plasm a calcium 9.4 mg/dL 8.6-10 .4 Not Available [facility] ([facility]) [address] [place] [address] Dr Lyons, [place], [address], 08/10/2020 14:18:04 08/09/20 20 08/10/2020 CMP, serum or plasm a protein 7.3 g/dL 6.0-8. 3 Not Available [facility] ([facility]) [address] [place] [address] Dr Lyons, [place], [address], 08/10/2020 14:18:04 08/09/20 20 08/10/2020 CMP, serum or plasm a albumin 4.6 g/dL 3.5-5. 3 Not Available [facility] ([facility]) [address] [place] [address] Dr Lyons, [place], [address], 08/10/2020 14:18:04 08/09/20 20 08/10/2020 CMP, serum or plasm a alkaline phosphatase 72 IU/L 35-121 Not Available [facility] ([facility]) [address] [place] [address] Dr Lyons, [place], [address], 08/10/2020 14:18:04 08/09/20 20 08/10/2020 CMP, serum or plasm a ALT (SGPT) 15 IU/L <5-47 Not Available [facility] ([facility]) [address] [place] [address] Dr Lyons, [place], [address], 08/10/2020 14:18:04 08/09/20 20 08/10/2020 CMP, serum or plasm a AST (SGOT) 16 IU/L <5-40 Not Available [facility] ([facility]) [facility] Dr Lyons, [place], [address], 08/10/2020 14:18:04 08/09/20 20 08/10/2020 CMP, serum or plasm a bilirubin, total 0.3 mg/dL <0.2-1 .2 Not Available [facility] ([facility]) [facility] Dr Lyons, [place], [address], 08/10/2020 14:18:04 08/09/20 20 08/10/2020 CMP, serum or plasm a A/G ratio 1.7 mg/dL 1.1-2. 5 Not Available [facility] ([facility]) [address] [place] [address] Dr Lyons, [place], [address], 08/10/2020 14:18:04 08/09/20 20 08/10/2020 GFR, estim ated (eGFR ), serum estimated GFR (black) 145 mL/mi n/1.7 3m2 >59 Not Available [facility] ([facility]) [facility] Dr Lyons, [place], [address], 08/10/2020 14:18:05 08/09/20 20 08/10/2020 GFR, estim ated (eGFR ), serum estimated GFR (other) 125 mL/mi n/1.7 3m2 >59 GFR Categ ories in Chron ic Kidne y Disea se (CKD) GFR Categ ory GFR (mL/m in/1. 73 sq. meter s) Inter preta tion G1 90 or great er Rosa l or high* G2 60-89 Mild decre ase* G3a 45-59 Mild to moder ate decre ase G3b 30-44 Moder ate to sever e decre ase G4 15-29 Sever e decre ase G5 14 or less Kidne y failu re *In the absen ce of carol bee damag e, neith er GFR categ ory G1 or G2 fulfi ll the crite shree for CKD (Herber ey Int Suppl 2013; 3.1-1 50) The CKD-E PI calcu latio n is inten ded for use in patie nts 18 years of age and older . Decre ased calcu latio n accur acy may be seen in patie nts takin g medic ation s that affec t renal excre tion, or in those patie nts with extre mes in muscl e mass or diet. Not Available [facility] ([facility]) [facility] Dr Lyons, [place], [address], 08/10/2020 14:18:05 08/09/20 20 08/10/2020 prola ctin, serum prolactin 11.40 NG/mL 4.79-2 3.30 Not Available [facility] ([employer] [facility]) [address] [place] [address] Dr Lyons, [place], [address], 08/10/2020 14:18:05 08/09/20 20 08/10/2020 HbA1c (hemo globi n A1c), blood hemoglobin A1C 5.0 % <5.7 The follo wing HbA1c range s recom abisai d by the Seaneri can Diabe lee Assoc iatio n (ADA) may be used as an aid in the diagn osis of diabe lee melli tus. HA1c Sugge sted Diagn osis >=6.5 % Diabe tic 5.7% - 6.4% Pre-D iabet ic <5.7% Non-D iabet ic Not Available [facility] ([facility]) [address] [place] [address] Dr Lyons, [place], [address], 08/10/2020 14:18:06 08/09/20 20 08/10/2020 estim ated avera ge gluco se estimated average glucose 97 mg/dL [place] ge Gluco se is calcu lated using the equat ion AG = (28.7 x HgbA1 c) - 46.7 based on the guide lines estab lishe d by the ADA. Not Available [facility] ([facility]) [facility] Dr Lyons, [place], [address], 08/10/2020 14:18:06 08/09/20 20 08/10/2020 TSH, serum or plasm a TSH reflex to FT4 1.53 mU/L 0.27-4 .20 Not Available [facility]) [address], [place], [address], 08/10/2020 14:18:06 08/09/20 20 08/11/2020 bacte rial vagin osis + vagin itis panel , vagin al trichomonas vaginalis, aptima (panther) NOT DETECT ED normal Trich omona s vagin calista: DNA testi ng perfo rmed by Trans cript ion Media betsy Ampli ficat ion (TMA) These resul ts shoul d be inter prete d in light of all clini anjel and labor atory findi ngs. This assay is highl y accur ate, but rare false posit benita and negat benita resul ts may occur . Posit benita resul ts in low preva lence popul ation s may requi re re-ev aluat ion. A negat benita resul t does not precl ude a possi ble infec tion due to a speci men inade quacy or sampl ing error . Test perfo rmed by [facility], d/b/a Path reg[facility]d, [address], [place] [address] , Alka Sharp ra, DO, Labor atory Direc tor. Gardn erell a vagin calista, Sophie da speci es: Genom ic DNA is isola betsy from patie nt speci mens by stand tamica labor atory techn iques and fernando zed using custo m OpenA rray plate s, perfo rmed on the Cool de Sac Stud[employer] o 12K Flex Real Time PCR syste m. A posit benita resul t is provi ded for patho genic bacte shree, virus and/o r funga l speci es based on detec tion of ampli ficat ion produ cts. Rosa l vagin al candelaria resul ts of Rosa l or [place] betsy are deter mined by calcu latin g the ratio of the organ ism to the total bacte shree prese nt in the speci men, and ehsan ring that ratio to a PathG roup patie nt popul ation . Overa ll resul ts of Rosa l, Borde rline and Abnor mal are deter mined using a proba bilit y model which was devel oped by an exten sive fernando sis and integ ratio n of clini anjel thres holds for marke r organ isms on a large set of sympt omati c & asymp tomat ic speci mens. Patie nt popul ation s with diffe rent demog raphi cs from the PathG roup model popul ation may have diffe rent indic ator organ isms with diffe rent relat benita ratio s, which would influ ence the final resul ts. Resul ts shoul d be inter prete d in the russell xt of all clini anjel and labor atory findi ngs. The test was devel oped and its perfo rmanc e katya cteri stics deter mined by [employer] [employer] [employer] d/b/a Path[facility] [employer]. It has not been clear ed or appro helen by the U.S. Food and Drug Admin istra tion. The FDA has deter mined that such clear ance or appro dario is not neces allison. Perti nent refer ence inter vals are avail able from the labor atory on reque st. Test( s) perfo rmed by [facility], d/b/a Path rou, [address] [place] [address] , Alka Sharp ra, DO, Labor atory Direc tor. Not Available [facility] ([facility]) [address] [facility] [address], [place], [address], 08/13/2020 16:28:25 08/09/20 20 08/13/2020 bacte rial vagin osis + vagin itis panel , vagin al kellie sp. Not Detect ed normal Trich omona s vagin calista: DNA testi ng perfo rmed by Trans cript ion Media betsy Ampli ficat ion (TMA) These resul ts shoul d be inter prete d in light of all clini anjel and labor atory findi ngs. This assay is highl y accur ate, but rare false posit benita and negat benita resul ts may occur . Posit benita resul ts in low preva lence popul ation s may requi re re-ev aluat ion. A negat benita resul t does not precl ude a possi ble infec tion due to a speci men inade quacy or sampl ing error . Test perfo rmed by [facility], d/b/a PathKaren montelongo, [address], [place] [address] , Alka Sharp ra, DO, Labor atory Direc tor. Suzanne grigsby, Sophie da speci es: Genom ic DNA is isola betsy from patie nt speci mens by stand tamica labor atory techn iques and fernando zed using custo m OpenA rray plate s, perfo rmed on the Quant Studi o 12K Flex Real Time PCR syste m. A posit benita resul t is provi ded for patho genic bacte shree, virus and/o r funga l speci es based on detec tion of ampli ficat ion produ cts. Rosa l vagin al candelaria resul ts of Rosa l or [place] betsy are deter mined by calcu latin g the ratio of the organ ism to the total bacte shree prese nt in the speci men, and ehsan ring that ratio to a PathG roup patie nt popul ation . Overa ll resul ts of Rosa l, Borde rline and Abnor mal are deter mined using a proba bilit y model which was devel oped by an exten sive fernando sis and integ ratio n of clini anjel thres holds for marke r organ isms on a large set of sympt omati c & asymp tomat ic speci mens. Patie nt popul ation s with diffe rent demog raphi cs from the PathG roup model popul ation may have diffe rent indic ator organ isms with diffe rent relat benita ratio s, which would influ ence the final resul ts. Resul ts shoul d be inter prete d in the russell xt of all clini anjel and labor atory findi ngs. The test was devel oped and its perfo rmanc e katya cteri stics deter mined by [employer], [facility] d/b/a [employer] [employer] rou. It has not been clear ed or appro helen by the U.S. Food and Drug Admin istra tion. The FDA has deter mined that such clear ance or appro dario is not neces allison. Perti nent refer ence inter vals are avail able from the labor atory on reque st. Test( s) perfo rmed by [employer], [facility], d/b/a Path rou, [address], [place] [address] , Alka Sharp ra, DO, Labor atory Direc tor. Not Available [facility] ([facility]) [address], [place], [address], 08/13/2020 16:28:25 08/09/20 20 08/13/2020 bacte rial vagin osis + vagin itis panel , vagin al gardnerella vaginalis Not Detect ed normal Trich omona s vagin calista: DNA testi ng perfo rmed by Trans cript ion Media betsy Ampli ficat ion (TMA) These resul ts shoul d be inter prete d in light of all clini anjel and labor atory findi ngs. This assay is highl y accur ate, but rare false posit benita and negat benita resul ts may occur . Posit benita resul ts in low preva lence popul ation s may requi re re-ev aluat ion. A negat benita resul t does not precl ude a possi ble infec tion due to a speci men inade quacy or sampl ing error . Test perfo rmed by [facility] [employer], [facility], d/b/a PathG roup, [address], [place] [address] , Alka Sharp ra, DO, Labor atory Direc tor. Suzanne erell a vagin calista, Sophie da speci es: Genom ic DNA is isola betsy from patie nt speci mens by stand tamica labor atory techn iques and fernando zed using custo m OpenA rray plate s, perfo rmed on the [employer] Stud[employer] o 12K Flex Real Time PCR syste m. A posit benita resul t is provi ded for patho genic bacte shree, virus and/o r funga l speci es based on detec tion of ampli ficat ion produ cts. Rosa l vagin al candelaria resul ts of Rosa l or [place] betsy are deter mined by calcu latin g the ratio of the organ ism to the total bacte shree prese nt in the speci men, and ehsan ring that ratio to a PathG roup patie nt popul ation . Overa ll resul ts of Rosa l, Borde rline and Abnor mal are deter mined using a proba bilit y model which was devel oped by an exten sive fernando sis and integ ratio n of clini anjel thres holds for marke r organ isms on a large set of sympt omati c & asymp tomat ic speci mens. Patie nt popul ation s with diffe rent demog raphi cs from the PathG roup model popul ation may have diffe rent indic ator organ isms with diffe rent relat benita ratio s, which would influ ence the final resul ts. Resul ts shoul d be inter prete d in the russell xt of all clini anjel and labor atory findi ngs. The test was devel oped and its perfo rmanc e katya cteri stics deter mined by [facility], [facility] d/b/a PathG roup. It has not been clear ed or appro helen by the U.S. Food and Drug Admin istra tion. The FDA has deter mined that such clear ance or appro dario is not neces allison. Perti nent refer ence inter vals are avail able from the labor atory on reque st. Test( s) perfo rmed by [facility], d/b/a Kathryn montelongo, [address] [facility] [address], [place] [address] , Alka Sharp ra, DO, Labor atory Direc tor. Not Available [facility]) [address] [place] [address], [place], [address], 08/13/2020 16:28:25 08/09/20 20 08/11/2020 neiss eria gonor rhoea e, cultu re, unspe cifie d speci men neisseria gonorrhoeae, aptima NOT DETECT ED normal DNA testi ng perfo rmed by Trans cript ion Media betsy Ampli ficat ion (TMA) These resul ts shoul d be inter prete d in light of all clini anjel and labor atory findi ngs. This assay is highl y accur ate, but rare false posit benita and negat benita resul ts may occur . Posit benita resul ts in low preva lence popul ation s may requi re re-ev aluat ion. A negat benita resul t does not precl ude a possi ble infec tion due to a speci men inade quacy or sampl ing error . Test perfo rmed by [facility], d/b/a Kathryn montelongo, [address] [facility] [address], [place] [address] , Alka Sharp ra, DO, Labor atory Direc tor. Not Available [facility] ([facility]) [facility] [address], [place], [address], 08/13/2020 16:28:26 08/09/20 20 08/11/2020 CT, DNA, qual, PCR, unspe cifie d speci men chlamydia trachomatis, aptima NOT DETECT ED normal DNA testi ng perfo rmed by Trans cript ion Media betsy Ampli ficat ion (TMA) These resul ts shoul d be inter prete d in light of all clini anjel and labor atory findi ngs. This assay is highl y accur ate, but rare false posit benita and negat benita resul ts may occur . Posit benita resul ts in low preva lence popul ation s may requi re re-ev aluat ion. A negat benita resul t does not precl ude a possi ble infec tion due to a speci men inade quacy or sampl ing error . Test perfo rmed by [facility], [address], [place] [address] , Alka Sharp ra, DO, Labor atory Direc tor. Not Available [facility] ([facility]) [address], [place], [address], 08/13/2020 16:28:26 08/09/20 20 08/09/2020 pregn juan j test, urine HCG negati ve Not Available [place] [address], [place], [address], 08/09/2020 11:15:09 Result Notes None recorded. Problems Name Problem SNOMED Code Status Onset Date Resolution Date Notes Provider Name and Address Organization Details Recorded Time Increased frequency of urination 935302758 Active 2018 Urinary frequency; Recorded Elsewhere: No Locatio n: [facility] rce: EHR Chroni c: N Practice ID: [id number] Billa ble Time: 09:45:00 AM Not Available [facility] 0 16:14:30 Blood leukocyte number above reference range 910732569 Active 2018 Elevated white blood cell count, unspecifie d;Recorded Elsewhere: No Locatio n: [facility] rce: EHR Chroni c: N Practice ID: [id number] Billa ble Time: 09:45:00 AM Not Available [facility] 0 16:14:31 Syphilis test finding 979255103 Active 2018 Encounter for STD screening; Recorded Elsewhere: No Locatio n: [facility] rce: EHR Chroni c: N Practice ID: [id number] Billa ble Time: 09:45:00 AM Not Available [facility] 0 16:14:31 Problem Notes None recorded. Medical Equipment None Reported. Allergies Allergen ID Allergen Name Allergen Category Reaction Reaction Severity Criticality Documentation Date Start Date Code Code System Note Provider Name and Address Organization Details Recorded Time 2994 poison fred extract environme nt Not available Not available Not available 08/09/2020 88544 6 RxNorm Abbie Fraga [facility] 0 10:47:16 Medications Name Sig Start Date Stop Date Status Note LastModified by Organization Details LastModified Time Macrobid 100 mg capsule take 1 capsule by oral route every 12 hours with food 11/01 completed Prescrib ed Elsewher e: No Locat ion: [facility] M odify By: [email or web address] z Encoun ter DateTime : 04/01/20 11:25:08 AM Not Available Not Available Not Available tranexami c acid 650 mg tablet active Not Available Not Available Not Available Vitals Date Recorded Body height Body mass index (BMI) Body weight Provider Name and Address Organization Details Last Updated DateTime 08/09/2020 167.64 cm 34.7 kg/m2 99900.36 g Abbie Fraga [facility] 08/09/2020 10:47:07 Date Recorded Systolic blood pressure Diastolic blood pressure Provider Name and Address Organization Details Last Updated DateTime 08/09/2020 120 mm[Hg] 76 mm[Hg] Hayley Crooks, GAIL- [address], [place], [address], [facility] 08/09/2020 14:45:38 Social History None recorded. Functional Status None recorded. Mental Status None recorded. Family History Relationship Description Onset Age of this Age Resolved Age Notes LastModified by Organization Details LastModified Time Brother Obsessive-co mpulsive disorder [email or web address] Not available 2020 16:06:55 Brother Bipolar disorder [email or web address] Not available 2020 16:07:12 Brother Posttraumati c stress disorder [email or web address] Not available 2020 16:07:27 Brother Depressive disorder [email or web address] Not available 2020 16:07:37 Brother Attention deficit hyperactivit y disorder, predominantl y inattentive type [email or web address] Not available 2020 16:07:44 Mother Obsessive-co mpulsive disorder [email or web address] Not available 2020 16:06:55 Mother Bipolar disorder [email or web address] Not available 2020 16:07:12 Mother Posttraumati c stress disorder [email or web address] Not available 2020 16:07:27 Mother Attention deficit hyperactivit y disorder, predominantl y inattentive type [email or web address] Not available 2020 16:07:54 Mother Multiple sclerosis [email or web address] Not available 2020 16:08:04 Sister Asthma [email or web address] Not available 16:08:19 Notes:Brother: Obsessive com pulsive disorders, Bipolar disorder, PTSD, Depression, ADD/ADHD Mother: Bipolar disorder, ADD/ADHD, PTSD, Obsessive compulsive disorders, Multiple sclerosis Sister: Asthma Medical History No medical history recorded. Gynecological History Statement/Question Response Current Control Method None Date of LMP 08/08/2020 Obstetrics History GPAL:G 0 P 0 0 0 0 Past Encounters Encounter ID Performer Location Encounter Start Date Encounter Closed Date Diagnosis/Indication Diagnosis SNOMED-CT Code Diagnosis ICD10 Code Diagnosis Note [id number] Hayley Crooks [facility] [address] [address] 08/09/2020 10:34:35 08/09/2020 11:13:25 Abnormal uterine bleeding 9166232918 9100 N93.9 Her menses is heavy but not excessive. Does not want to use BC therapy. Since her exam appears to be wnl. Menses are regular, although, heavy; we agreed to trial of Lysteeda for 3mos. Counseled on medication R/B's, Most common side effects, & use. All questions were answered to patient satisfacti on. RTO x 3mos Labs updated. Time spent in visit is a total of 26 mins with at least 50% of visit consisting of counseling and review of plan of care. test negative 822211765 Z32.02 Health Concerns Section Related Observation LastModified by Organization Detai ls LastModified Time None Recorded Concern Status LastModified by Organization Details LastModified Time None Recorded Advance Directives Directive None Recorded Payers Encounter Date Sequence Insurance Name Policy Number Policy Hansen Covered Member ID Hansen Member ID Guarantor Name 08/09/2020 1 [facility] - DOS PRIOR TO 2021 (MEDICAID REPLACEMENT - HMO) Yecenia Carrera [id number] Notes Date Note Type Note Provider Name and Address Organization Details Recorded Time 08/09/2020 text/html Beer - Abnormal BleedingReported bypatient.Notes:Rosi parson is a 20yo white female here today for abn vag d/c & heavy menses. Menses has been heavy (not excessive) since menarche age 11yo. She is SA but not more than 1x a month with her retirement boyfriend. Her menses are otherwise once a month lasting 5-7d. Some dysmenorrhea but nothing that is not manageable. She does not want hormonal therapy for this issue. She is wondering if there is something else she can do to lighten her flow. Neg urinary sx's Neg GI issues. Neg pelvic pain Hayley Crooks, GAIL- [address], [place], [address], [place] [facility] - [facility] 08/09/2020 14:45:51 OBGyn Episode No OBEpisode recorded.
--- OUTSIDE RECORDS SUMMARY | 2024-10-07 21:01 | XMS_ITS | Data Portability ---
Author Organization [place] [employer] , [facility] Address [address] [place] [address] Assessment No assessment recorded. Plan of Treatment Reminders Order Date Submit Date Provider Last Modified By Organization Details Last Modified Time Details Appointments None recorded. Lab None recorded. Referral None recorded. Procedures None recorded. Surgeries None recorded. Imaging None recorded. Medication Orders Ortho Micronor 0.35 mg tablet 2021 022 [id number], [address] [place], [place], [id number], 2 15:25:46 metronidazo le 500 mg tablet [address] [id number], [address] [place], [place], [id number], 2 15:07:50 Patient TargetsNo targets recorded. Patient InstructionsNo instructions recorded. Reason for Referral None Reported. Results Created Date Observation Date Name Description Value Unit Range Abnormal Flag Note LastModifiedBy Organization Detail LastModifiedTime Result Notes None recorded. Problems Name Problem SNOMED Code Status Onset Date Resolution Date Notes Provider Name and Address Organization Details Recorded Time [id number] Completed 021 05/16/2022 Jacquelynnanci giles, [place] [facility] [place] 14:15:21 Problem Notes None recorded. Procedures Surgical History Date Name Laterality Status Provider Name and Address Organization Details Recorded Time 03/21/20 22 Perineoplasty rpr per nonob completed Eric Marie MD [address] [place], [address], [place] [employer] [facility] 05/16/2022 15:29:31 Imaging Results None recorded. Procedure Notes None recorded. Medical Equipment None Reported. Allergies No known drug allergies Medications Name Sig Start Date Stop Date Status Note LastModified by Organization Details LastModified Time fluconazole 150 mg tablet TAKE 1 TABLET BY MOUTH EVERY DAY FOR 2 DAYS DIRECTED 06/27 completed Not Available Not Available Not Available metronidazo le 500 mg tablet TAKE 1 TABLET BY MOUTH TWICE DAILY FOR 7 DAYS 06/27 completed Not Available Not Available Not Available oxycodone-a cetaminophe n 5 mg-325 mg tablet TAKE 1 TABLET BY MOUTH EVERY 6 HOURS NEEDED 06/27 completed Not Available Not Available Not Available norethindro ne (contracept benita) 0.35 mg tablet TAKE 1 TABLET BY MOUTH EVERY DAY active Not Available Not Available No t Available amoxicillin 875 mg-potassiu m clavulanate 125 mg tablet TAKE 1 TABLET BY MOUTH EVERY 12 HOURS FOR 10 DAYS 06/27 completed Not Available Not Available Not Available active Not Available Not Avai lable Not Available Vitals Date Recorded Body height Body mass index (BMI) Body weight Body temperature Systolic blood pressure Diastolic blood pressure Provider Name and Address Organization Details Last Updated DateTime 2 165.1 cm 33.3 kg/m2 15463.1 9 g 96.8 [degF] 122 mm[Hg] 76 mm[Hg] Ramandeep Jeffrey [employer] [facility] 2 12:06:40 Date Recorded Body height Body mass index (BMI) Body weight Body temperature Systolic blood pressure Diastolic blood pressure Provider Name and Address Organization Details Last Updated DateTime 2 165.1 cm 33.9 kg/m2 05655.8 4 g 97 [degF] 110 mm[Hg] 60 mm[Hg] Chilo Flores [employer] [facility] 2 17:11:03 Date Recorded Body height Body mass index (BMI) Body weight Body temperature Systolic blood pressure Diastolic blood pressure Provider Name and Address Organization Details Last Updated DateTime 2 165.1 cm 34.3 kg/m2 28361.0 3 g 96.4 [degF] 110 mm[Hg] 70 mm[Hg] Severiano Bustamante [employer] [facility] 2 14:54:13 Date Recorded Body height Body mass index (BMI) Body weight Systolic blood pressure Diastolic blood pressure Provider Name and Address Organization Details Last Updated DateTime 05/16/2022 165.1 cm 35.4 kg/m2 57210.17 481 g 122 mm[Hg] 80 mm[Hg] Jacquelyn Ryan [employer] [facility] 2 14:12:54 Date Recorded Body height Body mass index (BMI) Body weight Body temperature Systolic blood pressure Diastolic blood pressure Provider Name and Address Organization Details Last Updated DateTime 2 165.1 cm 36.6 kg/m2 49000.0 4 g 96.5 [degF] 118 mm[Hg] 76 mm[Hg] Ramandeepfrancisco GreenWojciech [place] [facility] [facility] 2 15:11:45 Social History Question Answer Notes LastModified by Organizat ion Details LastModified Time Tobacco Smoking Status Current Some Day Smoker Jacquelyn Sebastianjasondilcia [facility] [employer] [facility] 07/23/2021 16:49:18 What Is Your Level Of Alcohol Consumption? None Information not available 07/23/2021 What Type Of Diet Are You Following? REGULAR Information not available 07/23/2021 Do You Or Have You Ever Used E-cigarettes Or Vape? Never Used Electronic Cigarettes Information not available 07/23/2021 What Is Your Relationship Status? Single Information not available 07/23/2021 Are You Sexually Active? Yes Information not available 07/23/2021 At What Age Did You Start Smoking Tobacco? 15 Information not available 07/23/2021 How Much Tobacco Do You Smoke? 1 PPW Information not available 07/23/2021 How Many Years Have You Smoked Tobacco? 5 Information not available 07/23/2021 Sex: Unknown Functional Status Question Answer Note LastModified by Organization D etails LastModified Time What is your exercise level? Moderate Information not available 07/23/2021 Mental Status None recorded. Family History Relationship Description Onset Age of this Age Resolved Age Notes LastModified by Organization Details LastModified Time Father No current problems or disability [email or web address] Not available 08/12 14:25:43 Mother No current problems or disability [email or web address] Not available 08/12 14:25:43 Medical History Condition Response Depression Y Anxiety Disorder Y ADD/ADHD Y Bipolar Disorder Y Gynecological History Statement/Question Response Flow Heavy Frequency of Cycle (Q days) 25 Date of LMP 05/04/2021 Date of Last Pap Smear Duration of Flow (days) 4 Most Recent Mammogram Current Control Method BCPs Age at Menarche 11 Obstetrics History GPAL:G 3 P 1 0 2 1 Type Value Multiple Births 0 Full Term 1 Induced 0 Spontaneous 2 Premature 0 Living 1 Ectopics 0 Total 3 Past Encounters Encounter ID Performer Location Encounter Start Date Encounter Closed Date Diagnosis/Indication Diagnosis SNOMED-CT Code Diagnosis ICD10 Code Diagnosis Note [id number] KWESI OLVERADaniel STEPHENS [facility] [address] [place] [address] 07/23/2021 16:18:21 07/24/2021 15:05:31 15035203 Z33.1 Routine an tenatal care 957257580 Z34.01 Infection screening 2437 14920 Z11.9 [id number] KWESI OLVERADaniel STEPHENS [facility] [address] [place] [address] 08/20/2021 11:54:38 08/21/2021 22:14:18 [id number] KWESI REED STE[facility]ENS [facility] [facility] [address] [place] [address] 09/17/2021 13:56:07 09/17/2021 14:14:55 Gestation period, 16 weeks 00711685 Z3A.16 Normal pre gnancy in multigravida 2754581435 36203 Z34.82 [id number] KWESIPAVAN STEPHENS [facility] [address] [place] [address] 10/15/2021 14:00:35 10/16/2021 15:27:01 screening for malformation 136253822 Z36.3 [id number] KWESI STEPHENS [facility] [facility] [address] [place] [address] 11/11/2021 14:16:05 11/11/2021 15:56:18 screening for malformation 401978546 Z36.3 Normal pre gnancy in multigravida 2376289261 27230 Z34.82 Gestation period, 24 weeks 167050097 Z3A.24 [id number] [facility] [address] [place] [address] 12/09/2021 14:06:42 12/10/2021 10:38:48 screening 139620756 Z36.9 Gestation period, 28 weeks 79447014 Z3A.28 Normal pre gnancy in multigravida 4653742747 61677 Z34.82 [id number] [facility] [address] [place] [address] 12/23/2021 14:23:39 12/23/2021 15:14:11 Gestation period, 30 weeks 07270691 Z3A.30 Normal pre gnancy in multigravida 3017531036 29563 Z34.82 [id number] KWESI STEPHENS [facility] [address] [place] [address] 01/06/2022 14:24:31 01/06/2022 16:36:30 Gestation period, 32 weeks 1787468 Z3A.32 Normal pre gnancy in multigravida 6347993762 78083 Z34.82 [id number] [facility] [address] [place] [address] 01/23/2022 13:12:28 02/28/2022 14:55:25 Gestation period, 34 weeks 66619156 Z3A.34 Normal pre gnancy in multigravida 7037313576 53412 Z34.82 [id number] [facility] [address] [facility] [place] [address] 02/06/2022 12:56:46 03/05/2022 14:27:30 Gestation period, 36 weeks 35413759 Z3A.36 Normal pre gnancy in multigravida 8951527115 67265 Z34.82 [id number] [facility] [address] [place] [address] 02/13/2022 14:26:06 02/13/2022 15:42:10 [id number] [facility] [address] [place] [address] 02/20/2022 15:02:14 02/21/2022 09:29:48 Gestation period, 38 weeks 02361747 Z3A.38 Normal pre gnancy in multigravida 0841256495 15655 Z34.82 [id number] [facility] [address] [place] [address] 02/27/2022 12:09:17 03/27/2022 15:19:04 Normal in primigravida 3733846011 87633 Z34.03 Gestation period, 39 weeks 14073529 Z3A.39 Maternal o besity complicating , childbirth and the puerperium, antepartum 6818456949 07 O99.049 [id number] KWESI REED STEPHENS ON [facility] [facility] [address] [place] [address] 03/03/2022 13:50:33 03/10/2022 13:39:35 Gestation period, 40 weeks 55956763 Z3A.40 Normal pre gnancy in multigravida 4918786084 26240 Z34.82 [id number] Eric Marie [facility] [address] [place] [address] 03/19/2022 14:00:26 03/19/2022 15:31:24 Perineal pain 515047683 R10.2 infection and will do incision and drainage and repair Candidiasis 15179144 B37 .9 [id number] Eric Marie MD [facility] [facility] [address] [place] [address] 03/21/2022 10:01:00 03/21/2022 10:39:56 Postoperative visit 265365982 Z09 doing well and we will cont antbxs and sitz baths w/antibact erial soap tweice per day and discusssed closing in 12 weeks and will have some spotting for 1-2 weeks [id number] Eric Marie MD [address] [address] 03/24/2022 11:58:15 03/24/2022 15:13:31 Postoperative visit 304743813 ZCatalina doing well and we will cont antbxs and sitz baths w/antibact erial soap twice per day and discusssed closing in 12 weeks and will have some spotting for 1-2 weeks gave her a 20 cc syringe to irrigate when she does her sitz baths and we will add flagyl and she will finish her augmentin Infection - perineal wound 688158069 B99.9 had lac [place] w/Dr mcfarland [id number] Eric Marie MD [address] [address] 04/01/2022 16:53:00 04/09/2022 15:26:43 Postoperative visit 397950507 ZCatalina doing well and we will cont antbxs and sitz baths w/antibact erial soap twice per day and discusssed closing in 12 weeks and will have some spotting for 1-2 weeks gave her a 20 cc syringe to irrigate when she does her sitz baths and she finished flagyl and was after the augmentin back in 2 weeks [id number] Eric Marie MD [address] [address] 04/16/2022 14:48:28 04/16/2022 15:35:01 Postoperative visit 210094774 Z09 doing well and we will cont antbxs and sitz baths w/antibact erial soap twice per day and discusssed closing in 12 weeks and will have some spotting for 1-2 weeks gave her a 20 cc syringe to irrigate when she does her sitz baths and she finished flagyl and was after the augmentin back in 2 weeks Contracept ion care management 681453407 Z30.9 Pt educated on risks which include but not limited to stroke, blood clot or hypertensi on Vs benefits of use, and reviewed ACHES symptoms. Importance of daily administra tion within the same 30 minute time frame reinforced to pt, and on use of condoms or abstinence if dosing schedule is interrupte d. Refills sent. Plan to F/U PRN or at next [employer]. [id number] Eric Marie MD [address] [place] [address] 05/16/2022 14:02:42 05/19/2022 09:48:47 Obstetric perineal wound disruption - delivered with complication 595919221 O90.1 the vaginal epithelium looks to be healthy she has good pelvic floor strength no urinary or fecal incontinen ce and no pain on palpation of the area of concern on March 21 we would reopen the whole perineal laceration repair secondary to a large abscess and Haro had the patient on multiple days of antibiotic s and it is healed so well I am going to have her see Should follow for a 2nd opinion we discussed no limitation s at this time she is able to have intercours e and we also discussed versus attempted vaginal delivery with her future children and we will decide on that route of delivery at a later time [id number] Eric Parker DO [facility] [address] [place] [address] 06/27/2022 14:59:07 06/27/2022 15:45:13 Postoperative visit 995897162 Z09 vagina well healed- f/up prn Health Concerns Section Related Observation LastModified by Organization Detai ls LastModified Time None Recorded Concern Status LastModified by Organization Details LastModified Time None Recorded Advance Directives Directive None Recorded Payers Encounter Date Sequence Insurance Name Policy Number Policy Hansen Covered Member ID Hansen Member ID Guarantor Name 03/24/2022 1 [facility] ON OR AFTER 02/21/21 (MEDICAID REPLACEMENT - HMO) Yecenia Carrera [id number] Yecenia Carrera 04/01/2022 1 [facility] ON OR AFTER 02/21/21 (MEDICAID REPLACEMENT - HMO) Yecenia Carrera [id number] Yecenia Deandre 04/16/2022 1 [facility] ON OR AFTER 02/21/21 (MEDICAID REPLACEMENT - HMO) Yecenia Carrera [id number] Yecenia Carrera 05/16/2022 1 [facility] ON OR AFTER 02/21/21 (MEDICAID REPLACEMENT - HMO) Yecenia Carrera [id number] Yecenia Carrera 06/27/2022 1 [facility] ON OR AFTER 02/21/21 (MEDICAID REPLACEMENT - HMO) Yecenia eDandre [id number] Yecenia Carrera Notes Date Note Type Note Provider Name and Address Organization Details Recorded Time 03/24/2022 text/html Post-OpReported bypatient.Notes: doing well and has some discharge Eric Marie MD [address] [place] [address], [phone], [facility] [employer] [facility] 03/24/2022 13:17:03 04/01/2022 text/html Post-OpReported bypatient.Associ ated Symptoms:incisio n healing well; no fatigue; normal appetite; normal bowel function; no constipation; no nausea; no emesis; pain improving; no pain; no fever; no bleeding; no lower extremity edema/pain; no dysuria/urinary symptoms Patient is here for follow up post-op surgery. Eric Marie MD [address] [place] [address], [phone], [facility] 04/08/2022 23:39:02 04/16/2022 text/html Post-OpReported bypatient.Associ ated Symptoms:incisio n healing well; no fatigue; normal appetite; normal bowel function; no constipation; no nausea; no emesis; pain improving; no pain; no fever; no bleeding; no lower extremity edema/pain; no dysuria/urinary symptoms Eric Marie MD [address] [place] [address], [phone], [facility] [employer] [facility] 04/16/2022 15:26:39 05/16/2022 text/html pt here to discuss getting stitched back up,. Eric Marie MD [address] [facility], [place], [address], [facility] [employer] [facility] 05/17/2022 22:14:47 06/27/2022 text/html pt here to FU on surgery. Eric Parker DO [address] [facility], [place], [address], [facility] [employer] [facility] 06/27/2022 15:33:15 OBGyn Episode Ob Episode Information Episode Created Date Number of Fetuses Patient Bloodtype Patient rh Status Prepregnancy Weight lbs Domestic Partner Domestic Partner Phone Father Name Filer Repairer Status 07/23/20 21 1 A Positive CLOSED Fetus Data First Name Last Name Admitted to NICU Weight (g) Sex Living Outcome Pediatric Complications Fetus ID Race Codes Race Delivery Type 3543.68 75 F Full Term [id number] Lorenzo Calculation Initial Lorenzo Date Initial Exam Date Initial Exam Provider Initial Ultrasound Date Last Menstrual Period Date Ultra Sound Weeks Gestation 03/03/2022 07/23/2021 07/23/2021 05/01/2021 0 Eighteen To Twenty Week Lorenzo Update Ultra Sound Date Fundal Height At Umbil Quickening Date Ultra Sound Latest Weeks Gestation Final Lorenzo Confirmed By Final Lorenzo Confirmed Date Final Lorenzo Date Ultra Sound Latest Days Gestation 0 [email or web address] 07/23/2021 03/03/20 22 0 Pre-katiuska Flowsheet Flowsheet Date 07/23/2021 Mcbride Score Blood Edema Fundus Height Fundus Units Glucose Ketones Leukocytes Nitrite Labor Signs Protein Cervic Dilation Cervic Effacement Cervic Station none none neg Type Weight in lbs Pre/Post Dialysis Refused Weight 210.925314841984 BP Diastolic BP Location Tested BP Systolic BP Type 70 110 Fetus Heart Rate Present A 162 Present Fetus Movement Comments Plan F/U of pelvic mass at 2 0 week US. SAB precautions reviewed. Take prenatals. Get flu and covid vaccine. First trimester anticipatory guidance given. RE: mass--VB or severe abdominal pain report to ED immediately. F/U 4 weeks Flowsheet Date 08/20/2021 Mcbride Score Blood Edema Fundus Height Fundus Units Glucose Ketones Leukocytes Nitrite Labor Signs Protein Cervic Dilation Cervic Effacement Cervic Station none none neg Type Weight in lbs Pre/Post Dialysis Refused Weight 202.269774510856 BP Diastolic BP Location Tested BP Systolic BP Type 84 124 Fetus Heart Rate Present A 152 Present Fetus Movement A Yes Comments SAB S/S reviewed and when to seek emergency care. Plan JOSS in 4 weeks and anatomy US after 20th week. Flowsheet Date 09/17/2021 Mcbride Score Blood Edema Fundus Height Fundus Units Glucose Ketones Leukocytes Nitrite Labor Signs Protein Cervic Dilation Cervic Effacement Cervic Station none Type Weight in lbs Pre/Post Dialysis Refused Weight 199.878570545375 BP Diastolic BP Location Tested BP Systolic BP Type 78 116 Fetus Heart Rate Present A 151 Present Fetus Movement A Yes Comments S/S SAB reviewed. RTC 4 week s anatomy and JOSS. Flowsheet Date 10/15/2021 Mcbride Score Blood Edema Fundus Height Fundus Units Glucose Ketones Leukocytes Nitrite Labor Signs Protein Cervic Dilation Cervic Effacement Cervic Station none none 1+ Type Weight in lbs Pre/Post Dialysis Refused Weight 199.436293258952 BP Diastolic BP Location Tested BP Systolic BP Type 86 130 Fetus Heart Rate Present A 153 Present Fetus Movement A Yes Comments No complaints today. CL 4.78 . Needs repeat anatomy for parts unseen. S/S Preeclampsia and PTL reviewed. RTC 4 weeks JOSS and US. Flowsheet Date 11/11/2021 Mcbride Score Blood Edema Fundus Height Fundus Units Glucose Ketones Leukocytes Nitrite Labor Signs Protein Cervic Dilation Cervic Effacement Cervic Station none none trace Type Weight in lbs Pre/Post Dialysis Refused Weight 202.101643137277 BP Diastolic BP Location Tested BP Systolic BP Type 76 124 Fetus Heart Rate Present A 150 Present Fetus Movement A Yes Comments Anatomy complete. S/S PTL an d preeclampsia reviewed. RTC 4 weeks JOSS and labs. Flowsheet Date 12/09/2021 Mcbride Score Blood Edema Fundus Height Fundus Units Glucose Ketones Leukocytes Nitrite Labor Signs Protein Cervic Dilation Cervic Effacement Cervic Station none 30 cm none Type Weight in lbs Pre/Post Dialysis Refused Weight 213.405165991027 BP Diastolic BP Location Tested BP Systolic BP Type 82 128 Fetus Heart Rate Present A 156 Present Fetus Movement A Yes Comments 28 w labs today. PTL, preecl ampsia precautions reviewed. FKC begin this week and process discussed as well as when to seek care for DFM. RTC 2 weeks JOSS. Flowsheet Date 12/23/2021 Mcbride Score Blood Edema Fundus Height Fundus Units Glucose Ketones Leukocytes Nitrite Labor Signs Protein Cervic Dilation Cervic Effacement Cervic Station 31 cm none Type Weight in lbs Pre/Post Dialysis Refused Weight 210.785306544207 BP Diastolic BP Location Tested BP Systolic BP Type 76 112 Fetus Heart Rate Present A 139 Present Fetus Movement A No Comments Flowsheet Date 01/06/2022 Mcbride Score Blood Edema Fundus Height Fundus Units Glucose Ketones Leukocytes Nitrite Labor Signs Protein Cervic Dilation Cervic Effacement Cervic Station none 32 wks none none neg Type Weight in lbs Pre/Post Dialysis Refused Weight 213.501404107379 BP Diastolic BP Location Tested BP Systolic BP Type 80 120 Fetus Heart Rate Present A 134 Present Fetus Movement A Yes Comments 4DUS today. PTL and preeclam psia S/S reviewed. Discussed FKC and when to seek care for DFM. RTC 2 weeks JOSS or sooner for needs. Has hemorrhoid and has felt constipated. Discussed OTC measures for both. Also feels that labia are becoming swollen. Discussed positioning to avoid worsening edema and ice therapy. RTC if worsening between appts. Flowsheet Date 01/23/2022 Mcbride Score Blood Edema Fundus Height Fundus Units Glucose Ketones Leukocytes Nitrite Labor Signs Protein Cervic Dilation Cervic Effacement Cervic Station none neg Type Weight in lbs Pre/Post Dialysis Refused Without clothes 215.477280908133 BP Diastolic BP Location Tested BP Systolic BP Type 70 R arm 120 sitting Fetus Heart Rate Present A 146 Present Fetus Movement Comments PTL AND PREECLAMPSIA PRECAUT IONS. FKC REVIEWED. GBS NEXT VISIT. Flowsheet Date 02/06/2022 Mcbride Score Blood Edema Fundus Height Fundus Units Glucose Ketones Leukocytes Nitrite Labor Signs Protein Cervic Dilation Cervic Effacement Cervic Station none Type Weight in lbs Pre/Post Dialysis Refused Weight 216.894577594861 BP Diastolic BP Location Tested BP Systolic BP Type 76 118 Fetus Heart Rate Present A 156 Present Fetus Movement A No Comments breasts are tender and leaki ng, no redness or palpable mass. Pt concerned for infection. Reviewed s/s mastitis and when to seek care. Pt verbalized understanding. Flowsheet Date 02/13/2022 Mcbride Score Blood Edema Fundus Height Fundus Units Glucose Ketones Leukocytes Nitrite Labor Signs Protein Cervic Dilation Cervic Effacement Cervic Station trace 38 1cm 50% -2 Type Weight in lbs Pre/Post Dialysis Refused Weight 219.284051145781 BP Diastolic BP Location Tested BP Systolic BP Type 88 L arm 124 sitting Fetus Heart Rate Present A 140 Fetus Movement A Yes Comments her Mom had NVD, not working , boyfriend = Terence, Girl = Stefanie , no med Hx , NKMA, cvx was posterior Flowsheet Date 02/20/2022 Mcbride Score Blood Edema Fundus Height Fundus Units Glucose Ketones Leukocytes Nitrite Labor Signs Protein Cervic Dilation Cervic Effacement Cervic Station none none neg 1cm 50% -3 Type Weight in lbs Pre/Post Dialysis Refused Weight 218.915943800810 BP Diastolic BP Location Tested BP Systolic BP Type 76 118 Fetus Heart Rate Present A 156 Present Fetus Movement A Yes Comments labor and preeclampsia preca utions. FKC and when to seek care for DFM. RTC one week if undelivered. Flowsheet Date 02/27/2022 Mcbride Score Blood Edema Fundus Height Fundus Units Glucose Ketones Leukocytes Nitrite Labor Signs Protein Cervic Dilation Cervic Effacement Cervic Station none none none neg 3cm 50% -1 Type Weight in lbs Pre/Post Dialysis Refused Weight 223.492368193254 BP Diastolic BP Location Tested BP Systolic BP Type 76 R arm 122 sitting Fetus Heart Rate Present A 140 Present Fetus Movement A Yes Comments declines IOL. baby is active . labor precautions Flowsheet Date 03/03/2022 Mcbride Score Blood Edema Fundus Height Fundus Units Glucose Ketones Leukocytes Nitrite Labor Signs Protein Cervic Dilation Cervic Effacement Cervic Station none none none neg Type Weight in lbs Pre/Post Dialysis Refused Weight 222.65741611301 BP Diastolic BP Location Tested BP Systolic BP Type 80 122 Fetus Heart Rate Present A 147 Present Fetus Movement A Yes Comments Mother at this appt with adrian alberts. Patient declines SVE today. Patient initially declining to schedule IOL and wishes to return for care 41.0 if undelivered. After extensive counseling, she is opting for 03/10 IOL Further counseling re: safety of IOL, risks of continuing , and when to seek [facility] care. Patient counseled to report to [facility] for ANY decrease in movement, signs of labor, or signs of preeclampsia. RTC 1 week, BPP, NST prior to IOL Flowsheet Date 03/19/2022 Mcbride Score Blood Edema Fundus Height Fundus Units Glucose Ketones Leukocytes Nitrite Labor Signs Protein Cervic Dilation Cervic Effacement Cervic Station Type Weight in lbs Pre/Post Dialysis Refused Weight 200.311992065361 BP Diastolic BP Location Tested BP Systolic BP Type 80 120 Fetus Heart Rate Present Fetus Movement Comments Flowsheet Date 03/21/2022 Mcbride Score Blood Edema Fundus Height Fundus Units Glucose Ketones Leukocytes Nitrite Labor Signs Protein Cervic Dilation Cervic Effacement Cervic Station Type Weight in lbs Pre/Post Dialysis Refused BP Diastolic BP Location Tested BP Systolic BP Type Fetus Heart Rate Present Fetus Movement Comments Flowsheet Date 03/24/2022 Mcbride Score Blood Edema Fundus Height Fundus Units Glucose Ketones Leukocytes Nitrite Labor Signs Protein Cervic Dilation Cervic Effacement Cervic Station Type Weight in lbs Pre/Post Dialysis Refused Weight 200.681932819940 BP Diastolic BP Location Tested BP Systolic BP Type 76 122 Fetus Heart Rate Present Fetus Movement Comments Flowsheet Date 04/01/2022 Mcbride Score Blood Edema Fundus Height Fundus Units Glucose Ketones Leukocytes Nitrite Labor Signs Protein Cervic Dilation Cervic Effacement Cervic Station Type Weight in lbs Pre/Post Dialysis Refused Weight 204.159350379266 BP Diastolic BP Location Tested BP Systolic BP Type 60 110 sitting Fetus Heart Rate Present Fetus Movement Comments Flowsheet Date 04/16/2022 Mcbride Score Blood Edema Fundus Height Fundus Units Glucose Ketones Leukocytes Nitrite Labor Signs Protein Cervic Dilation Cervic Effacement Cervic Station Type Weight in lbs Pre/Post Dialysis Refused Weight 206.128318111353 BP Diastolic BP Location Tested BP Systolic BP Type 70 110 Fetus Heart Rate Present Fetus Movement Comments Flowsheet Date 05/16/2022 Mcbride Score Blood Edema Fundus Height Fundus Units Glucose Ketones Leukocytes Nitrite Labor Signs Protein Cervic Dilation Cervic Effacement Cervic Station Type Weight in lbs Pre/Post Dialysis Refused Weight 213.014856540161 BP Diastolic BP Location Tested BP Systolic BP Type 80 122 Fetus Heart Rate Present Fetus Movement Comments Menstrual History Last Menstrual Date Menses Monthly On Bcp Conception Prior Menses Frequency Hcg Plus Date Menarche Onset Age 0905/01/2021 Genetic Screening And Infection History Question Response Note Recent Travel History Outside of Country false Cystic Fibrosis false Any Other Genetic History false Galindo Disease false Other Infection History false Thalassemia (Greenlandic, Andorran, Mediterranean, Or Background): MCV < 80 false Patient Or Baby's Father Had A Child With Defects Not Listed Above false Live With Someone With TB Or Exposed To TB false Patient's Age Will Be 35 Years Or Older At Estim ated Date of Delivery false Recurrent Loss, Or A Stillbirth false Hemoglobinopathy Or Carrier false Patient Or Partner Has History Of Genital Herpes false Intellectual Disability/Autism false Maternal Metabolic Disorder (eg, Type 1 Diabetes , PKU) false History of Hepatitis false Grant-Sachs (eg, Christianity, Cajun, Peruvian-Trevor) f alse History Of STD, Gonorrhea, Chlamydia, HPV, Syphi lis false Prior GBS-infected child false History of HIV false Personal or Family History o f Neural Tube Defect (Meningomyelocele, Spina Bifida, Or Anencephaly) false Hemophilia Or Other Blood Disorders false Mental Retardation/Autism false Golden's Chorea false If Yes, Was Person Tested For Fragile X? false Other Inherited Genetic Or Chromosomal Disorder false If Yes, Agent(s) And Strength/Dosage false Sickle Cell Disease Or Trait () false Personal or Family History of Congenital Heart D efect false Rash Or Viral Illness Since Last Menstrual Perio d false Muscular Dystrophy false Medications (including Suppl ements, Vitamins, Herbs, OTC Drugs), Illicit/Recreational Drugs, Alcohol false Other Structural Defect false Down Syndrome false Delivery Information Delivery Date Delivery Type Labor Anesthesia Weeks Gestation Incision Type Labor Labor Length Hrs Delivered By Post Complications Tubal Sterilization Discharge Date Comments 2 Sponta neous 40.3 Discharge Information Feeding Method Contraceptive Method Maternal HG B and HCT Levels
--- OUTSIDE RECORDS SUMMARY | 2024-10-07 21:01 | XMS_ITS | Referral Summary ---
Author Organization [facility] Address [address] [place] [address] Care Team Providers Care Supervisor Of Guidance And Testing Name Role Phone Christal Flores LEAD SCIENTIST Primary Care Provider [phone] Allergies No known active allergies Medications vit 04-myil-tjyok-d caraballo 27mg iron- 800 mcg-250 mg capsule [...] Plan of Treatment Not on file Insurance [facility] Care Teams Supervisor Of Guidance And Testing Relationship Specialty Start Date End Date Christal Flores NP PCP - General 11/15/20
== END 2024-10-07 23:12 | disposition left against medical advice (07) ==
DX: O20.9 Hemorrhage in early pregnancy, unspecified (principal)
CPT/HCPCS: 99199

== ENCOUNTER 2024-10-08 12:15 | Emergency (ER) | payer BC, SELFPAY ==
--- NOTE | ~2024-10-08 | US_ITS ---
EXAMINATION: US OB <=14 wk fetus w TV DATE: 10/08/2024 15:16 INDICATION: Pelvic pain and bleeding during first trimester TECHNIQUE: Real-time pelvic ultrasound utilizing both a transvaginal and transabdominal probe was pe rformed. The interpreting radiologist was not present for the study. COMPARISON: None. FINDINGS: The uterus measures 8.6 x 4.5 x 5.5 cm. Endometrial complex measures 1.4 cm thickness. There is an in trauterine gestational sac with double deciduous sign but no discernible yolk sac or pole. The mean sac diameter measures 5, which correlates with an estimated gestational age of 5 weeks and 1 day s. The right ovary measures 2.6 x 2.0 x 2.4 cm. The left ovary measures 2.2 x 1.7 x 2.4 cm. Vascular kesha w identified in both ovaries on color Doppler. There is trace amount of anechoic free fluid in the cu l-de-sac. IMPRESSION: 1. Single 5 mm intrauterine gestational sac with no visible yolk sac or pole likely due to esperanza y stage of . 2. Gestational age by ultrasound of 5 weeks 1 day(s) +/- 3 day(s) with ultrasound estimated date of delivery (REY) of 06/09/2025. Reviewed, dictated and finalized at location A. OFFICE CLERK IMPRESSION: 1. Single 5 mm intrauterine gestational sac with no visible yolk sac or p ole likely due to early stage of . 2. Gestational age by ultrasound of 5 weeks 1 day(s) +/- 3 day(s) with ultraso und estimated date of delivery (REY) of 06/09/2025.
[2024-10-08 12:17] VITALS: BP 143/80; PULSE 86; RESP 18; TEMP 36.4; O2SAT 100
--- OUTSIDE RECORDS SUMMARY | 2024-10-08 12:18 | XMS_ITS | Referral Summary ---
Author Organization [facility] Address [address] [place] [address] Care Team Providers Care Knitting Machine Operator Automatic Name Role Phone Christal Flores MAMMOGRAPHY TECHNICIAN Primary Care Provider Allergies No known active allergies Medications vit 56-inch-vufei-d caraballo 27mg iron- 800 mcg-250 mg capsule [...] Plan of Treatment Not on file Insurance [employer] Care Teams Knitting Machine Operator Automatic Relationship Specialty Start Date End Date Christal Flores NP PCP - General 11/15/20
--- OUTSIDE RECORDS SUMMARY | 2024-10-08 12:18 | XMS_ITS | Clinical Summary ---
Author Organization [facility] Address [address] [place] [address] Care Team Providers Care Oyster Bed Worker Name Role Phone Christal Flores NP Primary Care Provider [phone] Allergies No known active allergies Medications vit 00-wrhz-wwhcv-d caraballo 27mg iron- 800 mcg-250 mg capsule [...] exists Varicella Vaccines Completed 04/10/2008, 10/29/2001 Insurance [facility] Care Teams Oyster Bed Worker Relationship Specialty Start Date End Date Christal Flores NP PCP - General 11/15/20
[2024-10-08 13:03] LABS: Basophils Percent Auto 0.3 % (0.2-1.2); Eosinophils Absolute Auto 0.1 K/mm3 (0-0.3); Eosinophils Percent Auto 0.5 % (0-4.4); Hematocrit 42.3 % (37.0-47.0); Immature Granulocyte Absolute 0.02 K/mm3 (0.00-0.031); Immature Granulocyte Percent A 0.2 % (0-0.5); Lymphocytes Absolute Auto 1.79 K/mm3 (0.9-3.2); Mean Corpuscular HGB Conc 33.1 g/dl (32-36); Mean Corpuscular Hemoglobin 28.8 pg (26-34); Mean Platelet Volume 8.7 fl (7.4-10.4); Monocytes Absolute Auto 0.6 K/mm3 (0.1-0.6); Monocytes Percent Auto 5.9 % (2.6-8.5); Neutrophils Absolute Auto 7.5 K/mm3 (1.3-6.7); Neutrophils Percent Auto 75.1 % (45.5-73.1); Platelet Count Result 273 k/mm3 (150-375); Red Blood Count 4.86 M/mm3 (4.2-5.4); Red Cell Distribution Width 12.5 % (11.5-14.5); White Blood Count 9.9 K/mm3 (4.5-10.0)
[2024-10-08 13:14] LABS: Alanine Aminotransferase 15 U/L (6-35); Albumin Level 4.3 g/dL (3.5-5.1); Alkaline Phosphatase 58 U/L (38-126); Anion Gap 12 mmol/L (4-12); Aspartate Amino Transferase 19 U/L (14-36); Bilirubin,Total 0.6 mg/dL (0.2-1.3); Blood Urea Nitrogen 8 mg/dL (7-17); Calcium 9.2 mg/dL (8.4-10.2); Carbon Dioxide 22 mmol/L (22-30); Chloride 102 mmol/L (98-107); Estimated CRCL calculation 145 ml/min; Estimated Glomerular Filt Rate > 60; Glucose 92 mg/dL (65-110); Potassium 3.8 mmol/L (3.4-5.0); Sodium 136 mmol/L (137-145)
[2024-10-08 13:20] LABS: Prothrombin Time 13.3 Seconds (11.1-14.7)
[2024-10-08 13:21] LABS: Partial Thromboplastin Time 27.3 Seconds (22.3-36.8)
--- OUTSIDE RECORDS SUMMARY | 2024-10-08 13:42 | XMS_ITS | Referral Summary ---
Author Organization [facility] Address [address] [place] [address] Care Team Providers Care Meal Room Hand Name Role Phone Christal Flores CERTIFIED PERSONAL CHEF Primary Care Provider [phone] Allergies No known active allergies Medications vit 32-ulrk-cljka-d caraballo 27mg iron- 800 mcg-250 mg capsule [...] Plan of Treatment Not on file Insurance [facility] Care Teams Meal Room Hand Relationship Specialty Start Date End Date Christal Flores NP PCP - General 11/15/20
--- OUTSIDE RECORDS SUMMARY | 2024-10-08 13:42 | XMS_ITS | Clinical Summary ---
Author Organization [facility] Address [address] [place] [address] Care Team Providers Care Chief Engineer Research Name Role Phone Christal Flores NP Primary Care Provider [phone] Allergies No known active allergies Medications vit 59-unid-uvhyp-d caraballo 27mg iron- 800 mcg-250 mg capsule [...] 03/08/2032 03/08/2022, 02/03/2013, 07/30/2005, Additional history exists Hepatitis B Screening Completed 10/29/2001 , 05/28/2000, 04/28/2000 Varicella Vaccines Completed 04/10/2008, 10/29/2001 Insurance [facility] Care Teams Chief Engineer Research Relationship Specialty Start Date End Date Christal Flores NP PCP - General 11/15/20
--- NOTE | 2024-10-08 15:23 | ED_ITS ---
HPI - General Adult General Chief complaint: Vaginal Bleeding Stated complaint: Possible Miscarriage, Vaginal Bleeding Time Seen by Provider: 10/08/24 13:16 History of Present Illness HPI narrative: Patient is a 24-year-old female who presents ER with vaginal bleeding and pelvic cramping. LMP 09/07/2024. Positive test 2 days ago. Has been having cramping since then and had more than spotting yesterday but does not having additional bleeding today. No fevers or chills. Related Data Home Medications ?Medication ?Instructions ?Recorded ?Confirmed ?Last Taken ?Type avh-xlywrkc-rbhit-irn < 1 20 pkg PO DAILY 03/06/22 03/06/22 Unknown History mg-iron oral combo pack Allergies Allergy/AdvReac Type Severity Reaction Status Date / Time No Known Allergies Allergy Verified 10/08/24 12:45 Review of Systems 2 Constitutional: Constitutional: Reports no additional constitutional complaints ENT: Reports system reviewed and no additional complaints, except as documented Respiratory: Respiratory: Reports no additional respiratory complaints Gastrointestinal: Gastrointestinal: Reports no additional gastrointestinal complaints Genitourinary: Genitourinary: Reports no additional female genitourinary complaints [facility] Past Medical History Medical History No pertinent past medical history Surgical History Surgical History No pertinent past surgical history Social History Social History Smoking packs per day: 1 Smoking cigarettes per day: 20.0 Years smoked: 8 Smoking pack-years: 8.00 Smoking status: Current some day smoker Tobacco type: cigarettes Smokeless tobacco user: other Second hand tobacco smoke exposure: Yes Substance use: never Spiritual care concerns: No Exam 2 Narrative: GENERAL: Well-appearing, well-nourished, and in no acute distress. HEAD: Normocephalic, atraumatic. ENT: Mucous membranes moist. CHEST: Clear to auscultation. No respiratory distress. HEART: Regular rate and rhythm. Normal peripheral pulses. ABDOMEN: Soft, nontender, nondistended. EXTREMITIES: Normal range of motion. No edema. SKIN: Warm, dry, no rash. NEURO: Alert and oriented x3. PSYCH: Normal mood and affect. Course Course Emergency Course: Early IUP. Follow-up with OB. Discharge. Vital Signs Vital signs: Vital Signs Temperature 97.6 F 10/08/24 12:17 Pulse Rate 86 10/08/24 12:17 Respiratory Rate 18 10/08/24 12:17 Blood Pressure 143/80 H 10/08/24 12:17 Pulse Oximetry 100 10/08/24 12:17 Oxygen Delivery Room Air 10/08/24 12:17 Temperature 97.6 F 10/08/24 12:17 Pulse Rate 86 10/08/24 12:17 Respiratory Rate 18 10/08/24 12:17 Blood Pressure 143/80 H 10/08/24 12:17 Pulse Oximetry 100 10/08/24 12:17 Oxygen Delivery Room Air 10/08/24 12:17 Medical Decision Making Vital Signs Vital Signs: Vital Signs Temperature 97.6 F 10/08/24 12:17 Pulse Rate 86 10/08/24 12:17 Respiratory Rate 18 10/08/24 12:17 Blood Pressure 143/80 H 10/08/24 12:17 Pulse Oximetry 100 10/08/24 12:17 Oxygen Delivery Room Air 10/08/24 12:17 Temperature 97.6 F 10/08/24 12:17 Pulse Rate 86 10/08/24 12:17 Respiratory Rate 18 10/08/24 12:17 Blood Pressure 143/80 H 10/08/24 12:17 Pulse Oximetry 100 10/08/24 12:17 Oxygen Delivery Room Air 10/08/24 12:17 Lab Data 10/08/24 12:56 10/08/24 12:56 Labs: Lab Results 10/08/24 Range/Units 12:56 WBC 9.9 (4.5-10.0) K/mm3 RBC 4.86 (4.2-5.4) M/mm3 Hgb 14.0 (12.0-15.0) g/dL Hct 42.3 (37.0-47.0) % MCV 87.0 (80-100) fl MCH 28.8 (26-34) pg MCHC 33.1 (32-36) g/dl RDW 12.5 (11.5-14.5) % Plt Count 273 (150-375) k/mm3 MPV 8.7 (7.4-10.4) fl Immature Gran % (Auto) 0.2 (0-0.5) % Neut % (Auto) 75.1 H (45.5-73.1) % Lymph % (Auto) 18.0 L (18.3-44.2) % [place] % (Auto) 5.9 (2.6-8.5) % Eos % (Auto) 0.5 (0-4.4) % Baso % (Auto) 0.3 (0.2-1.2) % Lymph # (Auto) 1.79 (0.9-3.2) K/mm3 [place] # (Auto) 0.6 (0.1-0.6) K/mm3 Eos # (Auto) 0.1 (0-0.3) K/mm3 Baso # (Auto) 0.0 (0.0-0.1) K/mm3 Abs Immat Gran (auto) 0.02 (0.00-0.031) K/mm3 Absolute Neuts (auto) 7.5 H (1.3-6.7) K/mm3 Absolute Nucleated RBC 0.000 (0.0-0.012) K/mm3 Nucleated RBC % 0.0 (0.0-0.2) % PT 13.3 (11.1-14.7) Seconds INR 1.0 APTT 27.3 (22.3-36.8) Seconds Sodium 136 L (137-145) mmol/L Potassium 3.8 (3.4-5.0) mmol/L Chloride 102 (98-107) mmol/L Carbon Dioxide 22 (22-30) mmol/L Anion Gap 12 (4-12) mmol/L BUN 8 (7-17) mg/dL Creatinine 0.59 L (0.7-1.0) mg/dL Estim Creat Clear Calc 145 ml/min Estimated GFR > 60 (59 - ) Glucose 92 (65-110) mg/dL Calcium 9.2 (8.4-10.2) mg/dL Total Bilirubin 0.6 (0.2-1.3) mg/dL AST 19 (14-36) U/L ALT 15 (6-35) U/L Alkaline Phosphatase 58 (38-126) U/L Total Protein 7.0 (6.3-8.2) g/dL Albumin 4.3 (3.5-5.1) g/dL Beta HCG, Quant 2109.20 mIU/ML Blood Type A Positive Antibody Screen Negative Screen Not Reportable Baby's Blood Type Not Reportable Baby's JERSEY Not Reportable Doses of RhIg Required 0 Imaging Data Radiologist's impression: ITS Impressions Obstetrics Ultrasound 10/08/24 15:53 IMPRESSION: 1. Single 5 mm intrauterine gestational sac with no visible yolk sac or pole likely due to early stage of . 2. Gestational age by ultrasound of 5 weeks 1 day(s) +/- 3 day(s) with ultrasound estimated date of delivery (REY) of 06/09/2025. Discharge Plan Discharge Clinical Impression: Threatened miscarriage Patient Disposition: Home, Self-Care Condition: Stable Instructions: Threatened Miscarriage (ED) Additional Instructions: Older your blood level (beta hCG) is 2109. Your blood type is A positive. Your ultrasound shows a 5 week intrauterine with due date of 06/09/2025. Follow-up with your sales applications engineer. Return the ER if you are having heavy vaginal bleeding, severe lower abdominal pain, or have additional concerns. Patient Language: Irish Prescriptions: No Action ohr-ndfsffw-nyuzv-irn < 1 mg Combo Pack 20 pkg PO DAILY simethicone 125 mg capsule 125 mg PO QID Qty: 14 0RF Rx Instructions: administer after meals and at bedtime dicyclomine 20 mg tablet 20 mg PO QID Qty: 14 0RF cephalexin 500 mg capsule 500 mg PO Q6H 7 Days Qty: 28 0RF phenazopyridine [Pyridium] 200 mg tablet 200 mg PO TID Qty: 6 0RF Follow-up/Referrals: Kenton Kemp MD [Primary Care Provider] -
[2024-10-08 16:31] VITALS: BP 123/86; PULSE 79; RESP 20; O2SAT 99
== END 2024-10-08 16:33 | disposition home or self-care (01) ==
PROVIDERS: Emergency Provider Emergency Medicine; PCP Emergency Medicine
DX: O20.0 Threatened abortion (principal); O99.331 Smoking (tobacco) complicating pregnancy, first trimester; F17.210 Nicotine dependence, cigarettes, uncomplicated; Z3A.01 Less than 8 weeks gestation of pregnancy
CPT/HCPCS: 36415; 76801; 76817; 80053; 84702; 85025; 85461; 85610; 85730; 86850; 86900; 86901; 99284